=== PATIENT | female | born 1940 | race Asian ===

== ENCOUNTER 2019-02-16 17:24 | Emergency (ER) | payer OTHER ==
[2019-02-16 17:33] VITALS: TEMP 98; BMI 23.4
--- NOTE | 2019-02-16 18:00 | PDOC ---
History of Present Illness - General Chief Complaint: Injury Stated Complaint: PAIN Time Seen by Provider: 02/16/19 17:58 Past History - Past Medical History Allergies/Adverse Reactions: Allergies Allergy/AdvReac Type Severity Reaction Status Date / Time Sulfa (Sulfonamide Allergy Unknown Verified 02/16/19 17:33 Antibiotics) COPD: No Diabetes: Yes HTN: Yes - Surgical History Cardiac Surgery: Yes - Psycho Social/Smoking Cessation Hx Smoking History: Never smoked *Physical Exam - Vital Signs Last Vital Signs Temp Pulse Resp BP Pulse Ox 98 F 89 18 109/51 L 98 02/16/19 17:28 02/16/19 17:28 02/16/19 17:28 02/16/19 17:28 02/16/19 17:28 Discharge - Follow up/Referral Referrals: Darion Calabrese MD [Primary Care Provider] - - Patient Discharge Instructions - Post Discharge Activity
[2019-02-16] MEDS ORDERED: ACETAMINOPHEN 325 MG TABLET (FP) PO ONE (18:19)
[2019-02-16] MEDS ORDERED: LIDOCAINE 5% TOPICAL PATCH TP ONE (18:19)
[2019-02-16] MEDS ORDERED: LIDOCAINE 5% TOPICAL PATCH ONE (18:24)
[2019-02-16] MEDS ORDERED: ACETAMINOPHEN 325 MG TABLET (FP) ONE (18:24)
--- NOTE | 2019-02-16 18:28 | PDOC ---
*Physical Exam - Vital Signs Last Vital Signs Temp Pulse Resp BP Pulse Ox 98 F 89 18 109/51 L 98 02/16/19 17:28 02/16/19 17:28 02/16/19 17:28 02/16/19 17:28 02/16/19 17:28 Medical Decision Making - Medical Decision Making 02/16/19 18:28 78-year-old female presenting to the emergency department due to chest wall pain Patient status post a fall several days ago No head trauma or loss of consciousness Patient presents today due to persistent right-sided chest wall pain Pt seen by Midlevel Provider under my direct supervision Pt interviewed and examined On examination: Awake and alert No signs of external trauma to the head or neck. No midline C-spine tenderness to palpation Lungs are clear to auscultation Heart is regular rate and rhythm Chest wall tenderness noted No bruising noted Ancillary studies reviewed CT head, C-spine, chest pending We will reassess I agree with plan as outlined by Midlevel Provider 02/16/19 19:05 Discharge - Discharge Information Problems reviewed: Yes Clinical Impression/Diagnosis: Rib fractures Qualifiers: Encounter type: initial encounter Rib fracture type: multiple ribs Fracture type: closed Laterality: left Qualified Code(s): S22.42XA - Multiple fractures of ribs, left side, initial encounter for closed fracture Condition: Stable Disposition: HOME - Admission No - Additional Discharge Information Prescriptions: Lidocaine 5% Patch [Lidoderm -] 1 patch TP DAILY #30 patch - Follow up/Referral Referrals: Darion Calabrese MD [Primary Care Provider] - 2 Days - Patient Discharge Instructions Patient Printed Discharge Instructions: How to Use an Incentive Spirometer, DI for Rib Fracture Additional Instructions: Thank you for choosing [facility]. It was a pleasure taking care of you. You may take Tylenol 650 mg every 6 hours by mouth as needed for mild to moderate pain. Do not take more than 4000 mg of Tylenol in 1 day. Use the lidocaine patch as directed Please use the incentive spirometer as advised. Take 10 to 15 breaths with your spirometer every 1 to 2 hours. Follow-up with your doctor in 2 days Return to the Emergency Department if your symptoms worsen or persist, you have fever, shortness of breath, chest pain or other concerning symptoms. - Post Discharge Activity
--- NOTE | 2019-02-16 19:30 | PDOC ---
History of Present Illness - General Chief Complaint: Injury Stated Complaint: PAIN Time Seen by Provider: 02/16/19 17:58 History Source: Patient, Family Exam Limitations: No Limitations Past History - Past Medical History Allergies/Adverse Reactions: Allergies Allergy/AdvReac Type Severity Reaction Status Date / Time Sulfa (Sulfonamide Allergy Unknown Verified 02/16/19 17:33 Antibiotics) Home Medications: Ambulatory Orders Lidocaine 5% Patch [Lidoderm -] 1 patch TP DAILY #30 patch 02/16/19 COPD: No Diabetes: Yes HTN: Yes - Surgical History Cardiac Surgery: Yes - Psycho Social/Smoking Cessation Hx Smoking History: Never smoked Information on smoking cessation initiated: No *Physical Exam - Vital Signs Last Vital Signs Temp Pulse Resp BP Pulse Ox 98 F 89 18 109/51 L 98 02/16/19 17:28 02/16/19 17:28 02/16/19 17:28 02/16/19 17:28 02/16/19 17:28 - Physical Exam General Appearance: No: Apparent Distress HEENT: positive: DARIA, Other (no head trauma) Neck: positive: Tender midline (mild), Other (no pain with movement of neck) Respiratory/Chest: positive: Chest Tender (along L lateral chest wall and mildly along R lateral chest wall, no ecchymosis, no step-off palpable), Normal Breath Sounds. negative: Respiratory Distress Cardiovascular: positive: Regular Rhythm, Regular Rate, S1, S2. negative: Murmur Gastrointestinal/Abdominal: positive: Normal Bowel Sounds, Soft. negative: Tender, Distended, Guarding, Rebound Musculoskeletal: positive: Vertebral Tenderness (mild along thoracic spine, no TTP along lumbar spine). negative: Muscle Spasm Integumentary: positive: Normal Color Neurologic: positive: oral surgery assistant II-XII NML intact, Fully Oriented, Alert, Normal Mood/ Affect, Motor Strength 5/5 ED Treatment Course - RADIOLOGY Radiology Studies Ordered: Category Date Time Status CERVICAL SPINE CT W/O CONTR [CT] Stat CT Scan 02/16/19 18:[address] WITHOUT CONTRAST [CT] Stat CT Scan 02/16/19 18:[address] WITHOUT CONTRAST [CT] Stat CT Scan 02/16/19 18:19 Completed - Medications Given in the ED: ED Medications Discontinued Medications Generic Name Dose Route Start Last Admin Trade Name Freq PRN Reason Stop Dose Admin Acetaminophen 975 mg 02/16/19 18:19 02/16/19 18:29 Tylenol - PO 02/16/19 18:20 975 mg ONCE ONE Administration Lidocaine 1 patch 02/16/19 18:19 02/16/19 18:29 Lidoderm Patch - TP 02/16/19 18:20 1 patch ONCE ONE Administration Medical Decision Making - Medical Decision Making 78 y/o F hx of HTN, DM, CAD s/p CABG and PCI presents s/p fall 5 days ago. Patient's daughter just found out about the fall today. Per patient, she was getting out of bed and it was dark so she could not see well and she fumbled and fell, landing on left side. Is c/o B/L rib pain (more along left side of ribs), posterior HIGGINS and upper back pain. Denies fever, sob, abd pain, n/v, numbness/tingling/weakness of extremities. Is on baby ASA S/P mechanical fall Plan: r/o ICB, rib fracture, spine fracture CT head, CT cervical spine, CT chest, Tylenol, lido patch 02/16/19 19:27 CT head/cspine negative CT chest shows L rib fractures (4th, 5th, 6th), mildly displaced D/W Dr. Kelly - no concern for flail chest and no current need for admission Patient reports 0/10 pain after getting Tylenol and lido patch Patient given incentive spirometer and explained how to use it stable for dc 02/16/19 20:02 Discharge - Discharge Information Problems reviewed: Yes Clinical Impression/Diagnosis: Rib fractures Qualifiers: Encounter type: initial encounter Rib fracture type: multiple ribs Fracture type: closed Laterality: left Qualified Code(s): S22.42XA - Multiple fractures of ribs, left side, initial encounter for closed fracture Condition: Stable Disposition: HOME - Admission No - Additional Discharge Information Prescriptions: Lidocaine 5% Patch [Lidoderm -] 1 patch TP DAILY #30 patch Prescription Drug Monitoring Program (I-STOP) results: I-STOP not reviewed - Follow up/Referral Referrals: Darion Calabrese MD [Primary Care Provider] - 2 Days - Patient Discharge Instructions Patient Printed Discharge Instructions: DI for Rib Fracture, How to Use an Incentive Spirometer Additional Instructions: Thank you for choosing [facility]. It was a pleasure taking care of you. You may take Tylenol 650 mg every 6 hours by mouth as needed for mild to moderate pain. Do not take more than 4000 mg of Tylenol in 1 day. Use the lidocaine patch as directed Please use the incentive spirometer as advised. Take 10 to 15 breaths with your spirometer every 1 to 2 hours. Follow-up with your doctor in 2 days Return to the Emergency Department if your symptoms worsen or persist, you have fever, shortness of breath, chest pain or other concerning symptoms. - Post Discharge Activity
[2019-02-16 20:20] VITALS: BP 112/62; PULSE 86
== END 2019-02-16 20:22 | disposition home or self-care (01) ==
LOC: JER 17:24
DX: S22.42XA Multiple fractures of ribs, left side, initial encounter for closed fracture (principal); W01.0XXA Fall on same level from slipping, tripping and stumbling without subsequent striking against object, initial encounter; Y93.89 Activity, other specified; Y92.013 Bedroom of single-family (private) house as the place of occurrence of the external cause; Y99.8 Other external cause status; I10 Essential (primary) hypertension; E11.9 Type 2 diabetes mellitus without complications; Z88.2 Allergy status to sulfonamides
CPT/HCPCS: 70450-TC; 71250-TC; 72125-TC; 99282-25

== ENCOUNTER 2022-07-10 19:55 | Observation (INO) | payer OTHER ==
[2022-07-10] MEDS ORDERED: FOLIC ACID INJECTION - 1 MG, THIAMINE HCL 100 MG, MULTIVIT INJECTION ADULT 10 ML in SOD... IVPB ONE (21:12)
[2022-07-10 21:57] LABS: BASO % 0.3 % (0-2.0); EOS % 0.9 % (0-4.5); HEMATOCRIT 41.5 % (32.4-45.2); HEMOGLOBIN 14.2 GM/dL (10.7-15.3); LYMPH % 41.2 % (8-40); MCH 29.9 pg (25.7-33.7); MCHC 34.3 g/dl (32.0-36.0); MEAN CELL VOLUME 87.3 fl (80-96); MEAN PLT VOLUME 9.1 fl (7.5-11.1); MONO % 8.5 % (3.8-10.2); NEUT % 49.1 % (42.8-82.8); PLATELET COUNT 291 10^3/uL (134-434); RBC 4.76 M/mm3 (3.60-5.2); RDW 13.8 % (11.6-15.6); WHITE BLOOD COUNT 10.1 K/mm3 (4.0-10.0)
[2022-07-10 22:07] LABS: INR 1.11 (0.83-1.09); PROTHROMBIN TIME (PATIENT) 12.9 SEC (9.7-13.0)
[2022-07-10 22:09] LABS: ACTIVATED PTT 25.7 SECONDS (25.2-36.5)
[2022-07-10 22:19] LABS: CALCIUM 10.3 mg/dL (8.5-10.1)
[2022-07-10 22:20] LABS: ALBUMIN 3.7 g/dl (3.4-5.0); BLOOD UREA NITROGEN 54.5 mg/dL (7-18)
[2022-07-10 22:23] LABS: CREATININE 2.3 mg/dL (0.55-1.3)
[2022-07-10 22:25] LABS: BILIRUBIN,TOTAL 0.4 mg/dL (0.2-1); TOT PROT 9.1 g/dl (6.4-8.2)
[2022-07-10 22:28] LABS: N-TERMINAL BNP 485.4 pg/ml (5-450)
[2022-07-10] MEDS ORDERED: ASPIRIN 81 MG CHEWABLE TABLETS PO ONE (22:28)
[2022-07-10] MEDS ORDERED: ASPIRIN 81 MG CHEWABLE TABLETS ONE (22:32)
[2022-07-11] MEDS ORDERED: ACETAMINOPHEN 325 MG TABLET (FP) PO ONE (01:00)
[2022-07-11] MEDS: SODIUM CHLORIDE 1,000 ML IV SCH ×2 (01:02→21:42)
[2022-07-11] MEDS ORDERED: INSULIN (NOVOLOG) ASPART 100 UNITS/ML 10ML VIAL ONE ×2 (06:03→21:33)
[2022-07-11] MEDS: HEPARIN NA (PORCINE) 5,000 UNITS/ML 1ML VIAL SQ SCH ×3 (06:42→21:40)
[2022-07-11] MEDS ORDERED: INSULIN SLIDING SCALE (NOVOLOG) 1 VIAL SQ SCH (07:00)
[2022-07-11 09:19] LABS: BASO % 0.5 % (0-2.0); EOS % 1.8 % (0-4.5); HEMATOCRIT 37.3 % (32.4-45.2); HEMOGLOBIN 12.6 GM/dL (10.7-15.3); LYMPH % 45.6 % (8-40); MCH 29.7 pg (25.7-33.7); MCHC 33.6 g/dl (32.0-36.0); MEAN CELL VOLUME 88.3 fl (80-96); MEAN PLT VOLUME 9.7 fl (7.5-11.1); MONO % 7.2 % (3.8-10.2); NEUT % 44.9 % (42.8-82.8); PLATELET COUNT 261 10^3/uL (134-434); RBC 4.23 M/mm3 (3.60-5.2); RDW 13.5 % (11.6-15.6); WHITE BLOOD COUNT 7.3 K/mm3 (4.0-10.0)
[2022-07-11] MEDS: ISOSORBIDE MONONITRATE 30 MG TAB.SR.24H (FP) PO SCH (09:29)
[2022-07-11] MEDS: PANTOPRAZOLE 40 MG TABLET PO SCH (09:29)
[2022-07-11] MEDS: amLODIPine BESYLATE 2.5 MG TABLET (FP) PO SCH (09:29)
[2022-07-11] MEDS: PRIMIDONE 50 MG TABLET PO SCH (09:36)
[2022-07-11 10:00] VITALS: RESP 18
[2022-07-11 10:05] LABS: BLOOD UREA NITROGEN 42.3 mg/dL (7-18)
[2022-07-11 10:06] LABS: MAGNESIUM 1.7 mg/dL (1.8-2.4)
[2022-07-11 10:08] LABS: CREATININE 1.3 mg/dL (0.55-1.3); PHOSPHOROUS 2.3 mg/dL (2.5-4.9)
[2022-07-11 10:09] LABS: BILIRUBIN,TOTAL 0.6 mg/dL (0.2-1); TOT PROT 7.4 g/dl (6.4-8.2)
[2022-07-11 10:12] LABS: CALCIUM 8.7 mg/dL (8.5-10.1)
[2022-07-11 10:20] LABS: PH,URINE 5.5 (5.0-8.0); URINE APPEARANCE CLEAR; URINE BILIRUBIN NEGATIVE (NEGATIVE); URINE COLOR YELLOW; URINE GLUCOSE (UA) NEGATIVE (NEGATIVE); URINE KETONE NEGATIVE (NEGATIVE); URINE NITRITE NEGATIVE (NEGATIVE); URINE PROTEIN TRACE (NEGATIVE); URINE UROBILINOGEN 0.2 mg/dL (0.2-1.0)
[2022-07-11 11:17] LABS: URINE LEUK ESTERASE FEW (NEGATIVE)
[2022-07-11] MEDS: INSULIN SLIDING SCALE (NOVOLOG) 1 VIAL SQ SCH ×3 (11:18→21:41)
[2022-07-11] MEDS ORDERED: MAGNESIUM OXIDE 400 MG TABLET (FP) PO ONE (12:00)
[2022-07-11 15:40] LABS: ALBUMIN 2.8 g/dl (3.4-5.0); BLOOD UREA NITROGEN 29.7 mg/dL (7-18); CALCIUM 8.1 mg/dL (8.5-10.1)
[2022-07-11 15:43] LABS: CREATININE 1.2 mg/dL (0.55-1.3)
[2022-07-11 15:45] LABS: BILIRUBIN,TOTAL 0.4 mg/dL (0.2-1); TOT PROT 6.9 g/dl (6.4-8.2)
[2022-07-11] MEDS ORDERED: PREGABALIN 75 MG CAPSULE PO SCH (22:00)
[2022-07-11] MEDS ORDERED: ATORVASTATIN CA 10 MG TABLET (FP) PO SCH (22:00)
[2022-07-12] MEDS: SODIUM CHLORIDE 1,000 ML IV SCH (05:55)
[2022-07-12] MEDS: INSULIN SLIDING SCALE (NOVOLOG) 1 VIAL SQ SCH ×3 (06:12→17:19)
[2022-07-12] MEDS: HEPARIN NA (PORCINE) 5,000 UNITS/ML 1ML VIAL SQ SCH ×2 (06:41→13:11)
[2022-07-12 08:45] LABS: MAGNESIUM 1.3 mg/dL (1.8-2.4)
[2022-07-12 08:46] LABS: CALCIUM 8.2 mg/dL (8.5-10.1)
[2022-07-12 08:47] LABS: ALBUMIN 2.6 g/dl (3.4-5.0); BLOOD UREA NITROGEN 27.2 mg/dL (7-18)
[2022-07-12 08:49] LABS: PHOSPHOROUS 1.5 mg/dL (2.5-4.9)
[2022-07-12 08:50] LABS: TOT PROT 6.4 g/dl (6.4-8.2)
[2022-07-12 08:51] LABS: BILIRUBIN,TOTAL 0.2 mg/dL (0.2-1)
[2022-07-12] MEDS ORDERED: NAPH,MB-DB/K PH,MBDB POWDER PACKET PO ONE ×2 (09:04→10:32)
[2022-07-12] MEDS ORDERED: MAGNESIUM SULF 50% (8.12 MEQ/2 ML-1 GM VIAL) IVPB ONE ×2 (10:00→10:32)
[2022-07-12] MEDS: amLODIPine BESYLATE 2.5 MG TABLET (FP) PO SCH (10:06)
[2022-07-12] MEDS: ISOSORBIDE MONONITRATE 30 MG TAB.SR.24H (FP) PO SCH (10:06)
[2022-07-12] MEDS: PANTOPRAZOLE 40 MG TABLET PO SCH (10:10)
[2022-07-12] MEDS: PRIMIDONE 50 MG TABLET PO SCH (10:11)
[2022-07-12 10:21] VITALS: TEMP 98.6
[2022-07-12] MEDS ORDERED: LIDOCAINE 5% TOPICAL PATCH TP SCH (11:30)
[2022-07-12] MEDS ORDERED: D5-1/2NS+40 MEQ KCL - 40 MEQ/1,000 ML INFUS.BAG IV SCH (12:00)
[2022-07-12] MEDS ORDERED: SODIUM CHLORIDE 0.45%/POT 20 MEQ/1,000 ML INFUS.BAG IV SCH (12:45)
[2022-07-12 18:57] VITALS: BP 141/58; PULSE 56
[2022-07-12] MEDS ORDERED: LIDOCAINE PATCH REMOVAL MC SCH (22:00)
[2022-07-13 16:07] LABS: BETA-2-MICROGLOBULIN 3.2 mg/L (0.6-2.4)
[2022-07-13 18:07] LABS: FREE KAPPA,SERUM 78.7 mg/L (3.3-19.4)
== END 2022-07-12 19:06 | disposition home or self-care (01) ==
LOC: JER 19:55 → JERBED 22:24 → J4W 07-11 01:52
PROVIDERS: ADMIT Internal Medicine; ATTEND Internal Medicine
PROC: 3E033GC Introduction of Other Therapeutic Substance into Peripheral Vein, Percutaneous Approach (ICD-10-PCS; principal; 2022-07-10)
PROC: 3E023GC Introduction of Other Therapeutic Substance into Muscle, Percutaneous Approach (ICD-10-PCS; 2022-07-10)
PROC: 3E013VG Introduction of Insulin into Subcutaneous Tissue, Percutaneous Approach (ICD-10-PCS; 2022-07-10)
PROC: 3E033GC Introduction of Other Therapeutic Substance into Peripheral Vein, Percutaneous Approach (ICD-10-PCS; 2022-07-10)
PROC: 3E0337Z Introduction of Electrolytic and Water Balance Substance into Peripheral Vein, Percutaneous Approach (ICD-10-PCS; 2022-07-10)
DX: I25.10 Atherosclerotic heart disease of native coronary artery without angina pectoris (principal); I11.9 Hypertensive heart disease without heart failure; E78.5 Hyperlipidemia, unspecified; E11.9 Type 2 diabetes mellitus without complications; R53.1 Weakness; E86.0 Dehydration; R19.7 Diarrhea, unspecified; Z95.5 Presence of coronary angioplasty implant and graft; Z95.1 Presence of aortocoronary bypass graft; Z88.2 Allergy status to sulfonamides
CPT/HCPCS: 0241U-QW; 36415; 71045-TC-FY; 71250-TC; 80053; 81003; 82150; 82232; 82436; 82570; 82784; 82962; 83036; 83690; 83735; 83880; 83883; 83930; 83935; 84100; 84133; 84155; 84156; 84157; 84165; 84300; 84484; 85025; 85610; 85730; 87086; 87186; 87899; 93005; 93010; 96365; 96367; 96372; 96375; 97116-GP; 97161-GP; 99285-25; G0378; J1644; J3480

== ENCOUNTER 2023-03-23 19:19 | Inpatient (IN) | payer OTHER ==
[2023-03-23] MEDS ORDERED: AZITHROMYCIN IVPB 500 MG in DEXTROSE 5%-WATER - 250 ML IVPB ONE (20:22)
[2023-03-23] MEDS ORDERED: ACETAMINOPHEN 1000 MG/100 ML BAG IVPB ONE (20:22)
[2023-03-23] MEDS ORDERED: ALBUTEROL SO4 2.5/IPRATROPIUM 0.5 INH SOL 3 ML VIAL.NEB. NEB ONE ×2 (20:22→20:37)
[2023-03-23] MEDS ORDERED: PIPERACILLIN/TAZOB 3.375 GM 3.375 GM in DEXTROSE 5%-WATER - 50 ML IVPB ONE (20:36)
[2023-03-23] MEDS ORDERED: VANCOMYCIN 1,000 MG in DEXTROSE 5%-WATER - 250 ML IVPB ONE (20:36)
[2023-03-23] MEDS ORDERED: PIPERACILLIN/TAZOB 3.375 GM 3.375 GM/50 ML BAG IVPB ONE (20:43)
[2023-03-23] MEDS ORDERED: ACETAMINOPHEN INJECTION 100 ML IVPB ONE (20:43)
[2023-03-23 20:56] LABS: BASO % 0.4 % (0-2.0); EOS % 0.9 % (0-4.5); HEMATOCRIT 37.7 % (32.4-45.2); HEMOGLOBIN 12.1 GM/dL (10.7-15.3); LYMPH % 17.8 % (8-40); MCH 28.5 pg (25.7-33.7); MCHC 32.1 g/dl (32.0-36.0); MEAN CELL VOLUME 88.7 fl (80-96); MEAN PLT VOLUME 8.7 fl (7.5-11.1); MONO % 5.6 % (3.8-10.2); NEUT % 75.3 % (42.8-82.8); PLATELET COUNT 199 10^3/uL (134-434); RBC 4.25 M/mm3 (3.60-5.2); RDW 13.4 % (11.6-15.6); WHITE BLOOD COUNT 13.3 K/mm3 (4.0-10.0)
[2023-03-23 21:03] LABS: INR 1.05 (0.83-1.09); PROTHROMBIN TIME (PATIENT) 12.2 SEC (9.7-13.0)
[2023-03-23 21:13] LABS: POTASSIUM 4.6 mmol/L (3.5-5.1)
[2023-03-23 21:16] LABS: CALCIUM 9.2 mg/dL (8.5-10.1)
[2023-03-23] MEDS ORDERED: methylPREDNISolone NA SUCC 125 MG/2 ML VIAL IVPUSH ONE (21:16)
[2023-03-23 21:17] LABS: ALBUMIN 3.1 g/dl (3.4-5.0); BLOOD UREA NITROGEN 25.1 mg/dL (7-18); MAGNESIUM 1.3 mg/dL (1.8-2.4)
[2023-03-23] MEDS ORDERED: VANCOMYCIN 1 GRAM (PRE-DOCKED) 1,000 MG/250 ML BAG IVPB ONE (21:19)
[2023-03-23 21:20] LABS: CREATININE 1.4 mg/dL (0.55-1.3)
[2023-03-23 21:21] LABS: TOT PROT 8.2 g/dl (6.4-8.2)
[2023-03-23] MEDS ORDERED: MAGNESIUM SULFATE IN WATER 2 GM/50 ML IVPB IVPB ONE ×2 (21:21→22:01)
[2023-03-23 21:22] LABS: BILIRUBIN,TOTAL 0.1 mg/dL (0.2-1)
[2023-03-23 21:52] LABS: LACTIC ACID 2.2 mmol/L (0.4-2.0)
[2023-03-23] MEDS ORDERED: SODIUM CHLORIDE 0.9% 500 ML INFUS.BAG IV ONE (21:53)
[2023-03-23] MEDS ORDERED: methylPREDNISolone NA SUCC 125 MG/2 ML VIAL ONE (22:01)
[2023-03-24 00:15] LABS: N-TERMINAL BNP 4046.8 pg/ml (5-450)
[2023-03-24] MEDS ORDERED: methylPREDNISolone NA SUCC 125 MG/2 ML VIAL IVPB SCH (03:45)
[2023-03-24 04:37] LABS: EPI CELLS 4 /uL (0-25.1); HYALINE CASTS 0 /uL (0-3.1); PH,URINE 5.5 (5.0-8.0); URINE APPEARANCE CLEAR; URINE BACTERIA 8 /uL (0-1359); URINE BILIRUBIN NEGATIVE (NEGATIVE); URINE COLOR YELLOW; URINE GLUCOSE (UA) 1+ (NEGATIVE); URINE KETONE NEGATIVE (NEGATIVE); URINE LEUK ESTERASE NEGATIVE (NEGATIVE); URINE NITRITE NEGATIVE (NEGATIVE); URINE PROTEIN 3+ (NEGATIVE); URINE RBC 20 /uL (0-23.9); URINE UROBILINOGEN 0.2 mg/dL (0.2-1.0); URINE WBC 12 /uL (0-25.8)
[2023-03-24] MEDS ORDERED: methylPREDNISolone NA SUCC 40 MG/1 ML VIAL ONE ×2 (05:16→17:28)
[2023-03-24] MEDS ORDERED: HEPARIN NA (PORCINE) 5,000 UNITS/ML 1ML VIAL ONE ×3 (05:47→22:26)
[2023-03-24] MEDS: HEPARIN NA (PORCINE) 5,000 UNITS/ML 1ML VIAL SQ SCH ×3 (05:53→22:53)
[2023-03-24 08:00] LABS: BASO % 0.1 % (0-2.0); HEMATOCRIT 36.1 % (32.4-45.2); HEMOGLOBIN 11.9 GM/dL (10.7-15.3); LYMPH % 12.8 % (8-40); MCH 29.2 pg (25.7-33.7); MEAN CELL VOLUME 88.3 fl (80-96); MEAN PLT VOLUME 9.2 fl (7.5-11.1); MONO % 0.7 % (3.8-10.2); NEUT % 86.4 % (42.8-82.8); PLATELET COUNT 183 10^3/uL (134-434); RBC 4.08 M/mm3 (3.60-5.2); RDW 13.5 % (11.6-15.6); WHITE BLOOD COUNT 10.8 K/mm3 (4.0-10.0)
[2023-03-24 08:18] LABS: POTASSIUM 4.6 mmol/L (3.5-5.1)
[2023-03-24] MEDS ORDERED: INSULIN (LEVEMIR) 100 UNITS/ML UNITS SQ ONE (08:31)
[2023-03-24] MEDS ORDERED: ALBUTEROL SO4 2.5/IPRATROPIUM 0.5 INH SOL 3 ML VIAL.NEB. NEB ONE ×3 (08:31→20:11)
[2023-03-24] MEDS: ALBUTEROL SO4 2.5/IPRATROPIUM 0.5 INH SOL 3 ML VIAL.NEB. NEB SCH ×3 (08:41→20:25)
[2023-03-24] MEDS: INSULIN (LEVEMIR) 100 UNITS/ML UNITS SQ SCH ×2 (08:41→09:53)
[2023-03-24 08:45] LABS: LACTIC ACID 4.8 mmol/L (0.4-2.0)
[2023-03-24 08:55] LABS: BLOOD UREA NITROGEN 27.6 mg/dL (7-18); CALCIUM 8.8 mg/dL (8.5-10.1); MAGNESIUM 2.1 mg/dL (1.8-2.4)
[2023-03-24 08:57] LABS: CREATININE 1.6 mg/dL (0.55-1.3)
[2023-03-24 08:58] LABS: BILIRUBIN,TOTAL 0.3 mg/dL (0.2-1); PHOSPHOROUS 4.1 mg/dL (2.5-4.9); TOT PROT 8.1 g/dl (6.4-8.2)
[2023-03-24] MEDS ORDERED: OSELTAMIVIR PHOSPHATE 45 MG CAPSULE PO SCH (10:00)
[2023-03-24] MEDS ORDERED: AZITHROMYCIN IVPB 250 MG in DEXTROSE 5%-WATER - 250 ML IVPB SCH (10:00)
[2023-03-24] MEDS ORDERED: ENOXAPARIN NA (PORCINE) 40 MG/0.4 ML DISP.SYRIN SQ SCH (10:00)
[2023-03-24] MEDS: GABAPENTIN 300 MG CAPSULE PO SCH (11:00)
[2023-03-24] MEDS: ISOSORBIDE MONONITRATE 30 MG TAB.SR.24H (FP) PO SCH (11:00)
[2023-03-24] MEDS: OSELTAMIVIR PHOSPHATE 30 MG CAPSULE PO SCH (11:00)
[2023-03-24] MEDS: amLODIPine BESYLATE 5 MG TABLET (FP) PO SCH (11:00)
[2023-03-24] MEDS: PRIMIDONE 50 MG TABLET PO SCH (11:00)
[2023-03-24] MEDS: methylPREDNISolone NA SUCC 125 MG/2 ML VIAL IVPB SCH ×2 (11:00→17:39)
[2023-03-24] MEDS ORDERED: CEFTRIAXONE 1 GM/50 ML BAG ONE (12:54)
[2023-03-24] MEDS: CEFTRIAXONE 1 GM in DEXTROSE 5%-WATER - 50 ML IVPB SCH (12:59)
[2023-03-24] MEDS ORDERED: SODIUM CHLORIDE 0.45% 1,000 ML IV SCH (15:00)
[2023-03-24 16:07] LABS: ARTERIAL BLD GAS O2 SATURATION 96.3 % (95-98); ARTERIAL BLOOD GAS BASE EXCESS -4.9 mmol/L (-2-2); ARTERIAL BLOOD GAS PO2 89.2 mmHg (80-100); ARTERIAL BLOOD GAS pH 7.333 (7.350-7.450)
[2023-03-24 16:13] LABS: ALLENS TEST POSITIVE
[2023-03-24 17:49] LABS: LACTIC ACID 5.2 mmol/L (0.4-2.0)
[2023-03-24 18:01] LABS: CHLORIDE 97 mmol/L (98-107); POTASSIUM 4.9 mmol/L (3.5-5.1); SODIUM 131 mmol/L (136-145)
[2023-03-24 18:04] LABS: ANION GAP 12 mmol/L (4-13); BLOOD UREA NITROGEN 31.4 mg/dL (7-18); CO2 23 mmol/L (21-32)
[2023-03-24 18:06] LABS: CREATININE 1.8 mg/dL (0.55-1.3); SGOT/AST 21 U/L (15-37); SGPT/ALT 26 U/L (13-61)
[2023-03-24 18:08] LABS: TOT PROT 8.1 g/dl (6.4-8.2)
[2023-03-24 18:09] LABS: ALK PHOS 147 U/L (45-117)
[2023-03-24 18:14] LABS: BILIRUBIN,TOTAL < 0.1 mg/dL (0.2-1)
[2023-03-24] MEDS ORDERED: FUROSEMIDE 40 MG/4 ML INJECTABLE VIAL IVPUSH ONE (18:21)
[2023-03-24] MEDS ORDERED: VANCOMYCIN 1 GRAM (PRE-DOCKED) 1,000 MG/250 ML BAG IVPB ONE ×2 (18:30→18:51)
[2023-03-24 18:50] LABS: GLUCOSE,RANDOM 485 mg/dL (74-106)
[2023-03-24] MEDS ORDERED: FUROSEMIDE 40 MG/4 ML INJECTABLE VIAL ONE (18:51)
[2023-03-24] MEDS ORDERED: ASPIRIN 81 MG CHEWABLE TABLETS PO ONE (19:08)
[2023-03-24] MEDS ORDERED: INSULIN (NOVOLOG) ASPART 100 UNITS/ML 10ML VIAL SQ ONE (19:51)
[2023-03-24] MEDS ORDERED: ASPIRIN 81 MG CHEWABLE TABLETS ONE (20:12)
[2023-03-24] MEDS ORDERED: DOXYCYCLINE HYCLATE 100 MG VIAL ONE ×2 (20:28→22:26)
[2023-03-24] MEDS: DOXYCYCLINE INJECTION 100 MG in DEXTROSE 5%-WATER 100 ML IVPB SCH ×2 (20:37→22:53)
[2023-03-24] MEDS ORDERED: INSULIN ASPART SLIDING SCALE (NOVOLOG) 1 VIAL SQ SCH (22:00)
[2023-03-24] MEDS ORDERED: ATORVASTATIN CA 10 MG TABLET (FP) ONE (22:26)
[2023-03-24] MEDS ORDERED: DONEPEZIL HCL 5 MG TABLET (FP) ONE (22:26)
[2023-03-24] MEDS: ATORVASTATIN CA 10 MG TABLET (FP) PO SCH (22:53)
[2023-03-24] MEDS: DONEPEZIL HCL 5 MG TABLET (FP) PO SCH (22:53)
[2023-03-25] MEDS ORDERED: methylPREDNISolone NA SUCC 40 MG/1 ML VIAL ONE ×2 (03:55→08:31)
[2023-03-25] MEDS: methylPREDNISolone NA SUCC 125 MG/2 ML VIAL IVPB SCH ×3 (04:01→17:52)
[2023-03-25] MEDS ORDERED: HEPARIN NA (PORCINE) 5,000 UNITS/ML 1ML VIAL ONE (05:57)
[2023-03-25] MEDS: HEPARIN NA (PORCINE) 5,000 UNITS/ML 1ML VIAL SQ SCH ×3 (06:05→21:46)
[2023-03-25] MEDS ORDERED: ALBUTEROL SO4 2.5/IPRATROPIUM 0.5 INH SOL 3 ML VIAL.NEB. NEB ONE (08:12)
[2023-03-25] MEDS ORDERED: DOXYCYCLINE HYCLATE 100 MG VIAL ONE (08:32)
[2023-03-25] MEDS ORDERED: CEFTRIAXONE 1 GM/50 ML BAG ONE (08:52)
[2023-03-25] MEDS ORDERED: INSULIN (NOVOLOG) ASPART 100 UNITS/ML 10ML VIAL ONE (09:13)
[2023-03-25] MEDS: ISOSORBIDE MONONITRATE 30 MG TAB.SR.24H (FP) PO SCH (09:19)
[2023-03-25] MEDS: ALBUTEROL SO4 2.5/IPRATROPIUM 0.5 INH SOL 3 ML VIAL.NEB. NEB SCH ×3 (09:19→20:05)
[2023-03-25] MEDS: INSULIN (LEVEMIR) 100 UNITS/ML UNITS SQ SCH (09:19)
[2023-03-25] MEDS: INSULIN ASPART SLIDING SCALE (NOVOLOG) 1 VIAL SQ SCH ×4 (09:19→21:48)
[2023-03-25] MEDS: OSELTAMIVIR PHOSPHATE 30 MG CAPSULE PO SCH (09:20)
[2023-03-25] MEDS: GABAPENTIN 300 MG CAPSULE PO SCH (09:20)
[2023-03-25] MEDS: CEFTRIAXONE 1 GM in DEXTROSE 5%-WATER - 50 ML IVPB SCH (09:20)
[2023-03-25] MEDS: amLODIPine BESYLATE 5 MG TABLET (FP) PO SCH (09:20)
[2023-03-25] MEDS: DOXYCYCLINE INJECTION 100 MG in DEXTROSE 5%-WATER 100 ML IVPB SCH ×2 (09:20→21:49)
[2023-03-25] MEDS: PRIMIDONE 50 MG TABLET PO SCH (09:20)
[2023-03-25 09:58] LABS: HEMATOCRIT 36.6 % (32.4-45.2); HEMOGLOBIN 12.1 GM/dL (10.7-15.3); MCH 28.9 pg (25.7-33.7); MCHC 33.1 g/dl (32.0-36.0); MEAN CELL VOLUME 87.4 fl (80-96); MEAN PLT VOLUME 9.4 fl (7.5-11.1); PLATELET COUNT 223 10^3/uL (134-434); RBC 4.18 M/mm3 (3.60-5.2); RDW 13.8 % (11.6-15.6); WHITE BLOOD COUNT 19.9 K/mm3 (4.0-10.0)
[2023-03-25 10:47] LABS: POTASSIUM 4.4 mmol/L (3.5-5.1)
[2023-03-25 10:52] LABS: LACTIC ACID 2.9 mmol/L (0.4-2.0)
[2023-03-25 10:54] LABS: CALCIUM 8.7 mg/dL (8.5-10.1)
[2023-03-25 10:56] LABS: MAGNESIUM 1.8 mg/dL (1.8-2.4)
[2023-03-25 10:59] LABS: BILIRUBIN,TOTAL 0.2 mg/dL (0.2-1); CREATININE 1.5 mg/dL (0.55-1.3); PHOSPHOROUS 3.5 mg/dL (2.5-4.9); TOT PROT 8.1 g/dl (6.4-8.2)
[2023-03-25 16:48] VITALS: BMI 25.2
[2023-03-25] MEDS: ATORVASTATIN CA 10 MG TABLET (FP) PO SCH (21:45)
[2023-03-25] MEDS: DONEPEZIL HCL 5 MG TABLET (FP) PO SCH (21:45)
[2023-03-26] MEDS: methylPREDNISolone NA SUCC 125 MG/2 ML VIAL IVPB SCH ×3 (02:00→17:07)
[2023-03-26] MEDS: HEPARIN NA (PORCINE) 5,000 UNITS/ML 1ML VIAL SQ SCH ×3 (06:31→22:33)
[2023-03-26] MEDS: INSULIN ASPART SLIDING SCALE (NOVOLOG) 1 VIAL SQ SCH ×4 (06:32→22:52)
[2023-03-26] MEDS: ALBUTEROL SO4 2.5/IPRATROPIUM 0.5 INH SOL 3 ML VIAL.NEB. NEB SCH ×3 (07:33→20:21)
[2023-03-26 08:40] LABS: BASO % 0.3 % (0-2.0); HEMATOCRIT 32.8 % (32.4-45.2); LYMPH % 17.3 % (8-40); MCH 29.1 pg (25.7-33.7); MCHC 33.4 g/dl (32.0-36.0); MEAN CELL VOLUME 87.3 fl (80-96); MEAN PLT VOLUME 9.7 fl (7.5-11.1); NEUT % 77.4 % (42.8-82.8); PLATELET COUNT 195 10^3/uL (134-434); RBC 3.76 M/mm3 (3.60-5.2); RDW 13.8 % (11.6-15.6); WHITE BLOOD COUNT 17.1 K/mm3 (4.0-10.0)
[2023-03-26 08:48] LABS: POTASSIUM 5.1 mmol/L (3.5-5.1)
[2023-03-26 09:09] LABS: CALCIUM 8.8 mg/dL (8.5-10.1)
[2023-03-26 09:10] LABS: ALBUMIN 2.8 g/dl (3.4-5.0); BLOOD UREA NITROGEN 55.8 mg/dL (7-18)
[2023-03-26 09:13] LABS: CREATININE 1.4 mg/dL (0.55-1.3)
[2023-03-26 09:14] LABS: BILIRUBIN,TOTAL 0.1 mg/dL (0.2-1); TOT PROT 7.2 g/dl (6.4-8.2)
[2023-03-26] MEDS: ISOSORBIDE MONONITRATE 30 MG TAB.SR.24H (FP) PO SCH (10:12)
[2023-03-26] MEDS: INSULIN (LEVEMIR) 100 UNITS/ML UNITS SQ SCH (10:13)
[2023-03-26] MEDS: GABAPENTIN 300 MG CAPSULE PO SCH (10:14)
[2023-03-26] MEDS: PRIMIDONE 50 MG TABLET PO SCH (10:14)
[2023-03-26] MEDS: amLODIPine BESYLATE 10 MG TABLET (FP) PO SCH (10:14)
[2023-03-26] MEDS: OSELTAMIVIR PHOSPHATE 30 MG CAPSULE PO SCH (10:15)
[2023-03-26] MEDS: DOXYCYCLINE INJECTION 100 MG in DEXTROSE 5%-WATER 100 ML IVPB SCH ×2 (10:16→22:32)
[2023-03-26] MEDS: CEFTRIAXONE 1 GM in DEXTROSE 5%-WATER - 50 ML IVPB SCH (10:18)
[2023-03-26] MEDS: DONEPEZIL HCL 5 MG TABLET (FP) PO SCH (22:34)
[2023-03-26] MEDS: ATORVASTATIN CA 10 MG TABLET (FP) PO SCH (22:34)
[2023-03-27] MEDS: methylPREDNISolone NA SUCC 125 MG/2 ML VIAL IVPB SCH (04:22)
[2023-03-27] MEDS: HEPARIN NA (PORCINE) 5,000 UNITS/ML 1ML VIAL SQ SCH ×3 (06:32→22:00)
[2023-03-27] MEDS: INSULIN ASPART SLIDING SCALE (NOVOLOG) 1 VIAL SQ SCH ×4 (06:33→22:01)
[2023-03-27] MEDS: ALBUTEROL SO4 2.5/IPRATROPIUM 0.5 INH SOL 3 ML VIAL.NEB. NEB SCH ×3 (07:49→19:37)
[2023-03-27] MEDS: methylPREDNISolone NA SUCC 40 MG/1 ML VIAL IVPUSH SCH ×2 (09:45→18:32)
[2023-03-27] MEDS: PRIMIDONE 50 MG TABLET PO SCH (09:46)
[2023-03-27] MEDS: DOXYCYCLINE INJECTION 100 MG in DEXTROSE 5%-WATER 100 ML IVPB SCH ×2 (09:46→22:01)
[2023-03-27] MEDS: amLODIPine BESYLATE 10 MG TABLET (FP) PO SCH (09:46)
[2023-03-27] MEDS: ISOSORBIDE MONONITRATE 30 MG TAB.SR.24H (FP) PO SCH (09:46)
[2023-03-27] MEDS: GABAPENTIN 300 MG CAPSULE PO SCH (09:48)
[2023-03-27] MEDS: CEFTRIAXONE 1 GM in DEXTROSE 5%-WATER - 50 ML IVPB SCH (11:28)
[2023-03-27] MEDS: OSELTAMIVIR PHOSPHATE 30 MG CAPSULE PO SCH (11:28)
[2023-03-27] MEDS: INSULIN (LEVEMIR) 100 UNITS/ML UNITS SQ SCH ×2 (11:48→22:00)
[2023-03-27] MEDS: INSULIN (NOVOLOG) ASPART 100 UNITS/ML 10ML VIAL SQ SCH (17:17)
[2023-03-27] MEDS ORDERED: INSULIN (NOVOLOG) ASPART 100 UNITS/ML 10ML VIAL ONE (21:29)
[2023-03-27] MEDS: DONEPEZIL HCL 5 MG TABLET (FP) PO SCH (22:00)
[2023-03-27] MEDS: ATORVASTATIN CA 10 MG TABLET (FP) PO SCH (22:00)
[2023-03-28] MEDS: methylPREDNISolone NA SUCC 40 MG/1 ML VIAL IVPUSH SCH ×2 (02:28→09:52)
[2023-03-28] MEDS: INSULIN ASPART SLIDING SCALE (NOVOLOG) 1 VIAL SQ SCH ×4 (06:11→23:04)
[2023-03-28] MEDS: HEPARIN NA (PORCINE) 5,000 UNITS/ML 1ML VIAL SQ SCH ×3 (06:15→22:20)
[2023-03-28] MEDS: INSULIN (LEVEMIR) 100 UNITS/ML UNITS SQ SCH ×2 (06:15→22:21)
[2023-03-28] MEDS: INSULIN (NOVOLOG) ASPART 100 UNITS/ML 10ML VIAL SQ SCH ×3 (06:19→17:04)
[2023-03-28] MEDS: ALBUTEROL SO4 2.5/IPRATROPIUM 0.5 INH SOL 3 ML VIAL.NEB. NEB SCH ×3 (07:44→20:16)
[2023-03-28 08:35] LABS: HEMATOCRIT 34.6 % (32.4-45.2); HEMOGLOBIN 11.3 GM/dL (10.7-15.3); MCH 28.7 pg (25.7-33.7); MCHC 32.7 g/dl (32.0-36.0); MEAN CELL VOLUME 87.6 fl (80-96); MEAN PLT VOLUME 9.5 fl (7.5-11.1); PLATELET COUNT 216 10^3/uL (134-434); RBC 3.95 M/mm3 (3.60-5.2); RDW 13.7 % (11.6-15.6); WHITE BLOOD COUNT 13.3 K/mm3 (4.0-10.0)
[2023-03-28 09:00] LABS: POTASSIUM 5.6 mmol/L (3.5-5.1)
[2023-03-28 09:15] LABS: CALCIUM 9.5 mg/dL (8.5-10.1)
[2023-03-28 09:16] LABS: ALBUMIN 2.7 g/dl (3.4-5.0); BLOOD UREA NITROGEN 57.7 mg/dL (7-18)
[2023-03-28 09:18] LABS: CREATININE 1.3 mg/dL (0.55-1.3)
[2023-03-28 09:19] LABS: BILIRUBIN,TOTAL 0.2 mg/dL (0.2-1); TOT PROT 7.3 g/dl (6.4-8.2)
[2023-03-28 09:49] LABS: ANISOCYTOSIS 0; HELMET CELLS 0; HOWELL-JOLLY BODIES 0; MACROCYTOSIS 0; OVALOCYTE 0; ROULEAU 0; SICKELED CELLS 0; TARGET CELLS 0; TEAR DROP CELLS 0; TOXIC GRANULATION 0
[2023-03-28] MEDS: DOXYCYCLINE INJECTION 100 MG in DEXTROSE 5%-WATER 100 ML IVPB SCH (09:52)
[2023-03-28] MEDS: amLODIPine BESYLATE 10 MG TABLET (FP) PO SCH (09:53)
[2023-03-28] MEDS: OSELTAMIVIR PHOSPHATE 30 MG CAPSULE PO SCH (09:53)
[2023-03-28] MEDS: PRIMIDONE 50 MG TABLET PO SCH (09:53)
[2023-03-28] MEDS: ISOSORBIDE MONONITRATE 30 MG TAB.SR.24H (FP) PO SCH (09:53)
[2023-03-28] MEDS: GABAPENTIN 300 MG CAPSULE PO SCH (09:56)
[2023-03-28] MEDS ORDERED: INSULIN (NOVOLOG) ASPART 100 UNITS/ML 10ML VIAL ONE ×2 (11:12→17:03)
[2023-03-28] MEDS: CEFTRIAXONE 1 GM in DEXTROSE 5%-WATER - 50 ML IVPB SCH (11:18)
[2023-03-28] MEDS ORDERED: ACETAMINOPHEN 1000 MG/100 ML BAG IVPB ONE (11:26)
[2023-03-28] MEDS: SODIUM ZIRCONIUM CYCLOSILICATE (LOKELMA) 5 GM PACKET PO SCH (11:57)
[2023-03-28] MEDS: ATORVASTATIN CA 10 MG TABLET (FP) PO SCH (22:20)
[2023-03-28] MEDS: DONEPEZIL HCL 5 MG TABLET (FP) PO SCH (22:20)
[2023-03-29] MEDS: HEPARIN NA (PORCINE) 5,000 UNITS/ML 1ML VIAL SQ SCH ×3 (06:25→22:32)
[2023-03-29] MEDS: INSULIN (LEVEMIR) 100 UNITS/ML UNITS SQ SCH ×2 (06:25→22:33)
[2023-03-29] MEDS: INSULIN ASPART SLIDING SCALE (NOVOLOG) 1 VIAL SQ SCH ×4 (06:26→22:42)
[2023-03-29] MEDS: INSULIN (NOVOLOG) ASPART 100 UNITS/ML 10ML VIAL SQ SCH ×3 (06:26→16:52)
[2023-03-29 07:42] LABS: POTASSIUM 4.8 mmol/L (3.5-5.1)
[2023-03-29 07:50] LABS: ALBUMIN 2.5 g/dl (3.4-5.0); BLOOD UREA NITROGEN 59.9 mg/dL (7-18)
[2023-03-29 07:51] LABS: BILIRUBIN,TOTAL 0.2 mg/dL (0.2-1)
[2023-03-29 07:52] LABS: CALCIUM 9.3 mg/dL (8.5-10.1); CREATININE 1.5 mg/dL (0.55-1.3); MAGNESIUM 1.7 mg/dL (1.8-2.4); PHOSPHOROUS 4.6 mg/dL (2.5-4.9)
[2023-03-29] MEDS ORDERED: MAGNESIUM SULF 50% (8.12 MEQ/2 ML-1 GM VIAL) IVPB ONE (07:54)
[2023-03-29 07:58] LABS: HEMATOCRIT 36.6 % (32.4-45.2); HEMOGLOBIN 11.8 GM/dL (10.7-15.3); MCH 28.5 pg (25.7-33.7); MCHC 32.3 g/dl (32.0-36.0); MEAN CELL VOLUME 88.4 fl (80-96); MEAN PLT VOLUME 9.4 fl (7.5-11.1); PLATELET COUNT 247 10^3/uL (134-434); RBC 4.14 M/mm3 (3.60-5.2); RDW 13.8 % (11.6-15.6); WHITE BLOOD COUNT 20.9 K/mm3 (4.0-10.0)
[2023-03-29] MEDS: ALBUTEROL SO4 2.5/IPRATROPIUM 0.5 INH SOL 3 ML VIAL.NEB. NEB SCH ×3 (08:27→20:05)
[2023-03-29 09:12] LABS: ANISOCYTOSIS 1+; MACROCYTOSIS 0; OVALOCYTE 1+
[2023-03-29] MEDS: SODIUM ZIRCONIUM CYCLOSILICATE (LOKELMA) 5 GM PACKET PO SCH (10:37)
[2023-03-29] MEDS: ISOSORBIDE MONONITRATE 30 MG TAB.SR.24H (FP) PO SCH (10:38)
[2023-03-29] MEDS: amLODIPine BESYLATE 10 MG TABLET (FP) PO SCH (10:38)
[2023-03-29] MEDS: GABAPENTIN 300 MG CAPSULE PO SCH (10:38)
[2023-03-29] MEDS: PRIMIDONE 50 MG TABLET PO SCH (10:43)
[2023-03-29] MEDS ORDERED: MAGNESIUM 2GM/50ML STERILE WATER IVPB IVPB ONE (11:15)
[2023-03-29] MEDS: DONEPEZIL HCL 5 MG TABLET (FP) PO SCH (22:32)
[2023-03-29] MEDS: ATORVASTATIN CA 10 MG TABLET (FP) PO SCH (22:32)
[2023-03-29] MEDS ORDERED: ACETAMINOPHEN 1000 MG/100 ML BAG IVPB PRN (22:39)
[2023-03-30] MEDS: HEPARIN NA (PORCINE) 5,000 UNITS/ML 1ML VIAL SQ SCH ×3 (05:59→21:49)
[2023-03-30] MEDS: INSULIN (LEVEMIR) 100 UNITS/ML UNITS SQ SCH (07:14)
[2023-03-30] MEDS: INSULIN (NOVOLOG) ASPART 100 UNITS/ML 10ML VIAL SQ SCH ×2 (07:14→11:09)
[2023-03-30] MEDS: INSULIN ASPART SLIDING SCALE (NOVOLOG) 1 VIAL SQ SCH ×3 (07:14→17:25)
[2023-03-30 07:17] LABS: POTASSIUM 5.2 mmol/L (3.5-5.1)
[2023-03-30 07:18] LABS: CALCIUM 8.8 mg/dL (8.5-10.1)
[2023-03-30 07:19] LABS: BLOOD UREA NITROGEN 62.7 mg/dL (7-18)
[2023-03-30 07:22] LABS: CREATININE 1.5 mg/dL (0.55-1.3)
[2023-03-30] MEDS: ALBUTEROL SO4 2.5/IPRATROPIUM 0.5 INH SOL 3 ML VIAL.NEB. NEB SCH ×3 (07:24→20:00)
[2023-03-30] MEDS: ISOSORBIDE MONONITRATE 30 MG TAB.SR.24H (FP) PO SCH (10:55)
[2023-03-30] MEDS: amLODIPine BESYLATE 10 MG TABLET (FP) PO SCH (10:55)
[2023-03-30] MEDS: PRIMIDONE 50 MG TABLET PO SCH (10:55)
[2023-03-30] MEDS: GABAPENTIN 300 MG CAPSULE PO SCH (10:55)
[2023-03-30] MEDS: SODIUM ZIRCONIUM CYCLOSILICATE (LOKELMA) 5 GM PACKET PO SCH (10:56)
[2023-03-30] MEDS ORDERED: TRIMETHOBENZAMIDE HCL 200MG/2ML INJ IM ONE (12:29)
[2023-03-30] MEDS ORDERED: DEXTROSE 50%-WATER - 25 GM/50 ML VIAL IVPUSH ONE (12:30)
[2023-03-30] MEDS: DEXTROSE 50%-WATER 25 GM/50 ML DISP.SYRIN IVPUSH PRN (12:40)
[2023-03-30] MEDS ORDERED: SODIUM CHLORIDE 1,000 ML IV SCH (12:45)
[2023-03-30] MEDS ORDERED: PIPERACILLIN/TAZOB 3.375 GM 3.375 GM in DEXTROSE 5%-WATER - 50 ML IVPB SCH (17:30)
[2023-03-30] MEDS: PIPERACILLIN/TAZOB 3.375 GM 3.375 GM in DEXTROSE 5%-WATER - 50 ML IVPB SCH (18:47)
[2023-03-30] MEDS: DONEPEZIL HCL 5 MG TABLET (FP) PO SCH (21:47)
[2023-03-30] MEDS: ATORVASTATIN CA 10 MG TABLET (FP) PO SCH (21:47)
[2023-03-30] MEDS ORDERED: INSULIN (NOVOLOG) ASPART 100 UNITS/ML 10ML VIAL SQ ONE (22:25)
[2023-03-31] MEDS: PIPERACILLIN/TAZOB 3.375 GM 3.375 GM in DEXTROSE 5%-WATER - 50 ML IVPB SCH ×4 (00:09→18:19)
[2023-03-31] MEDS: HEPARIN NA (PORCINE) 5,000 UNITS/ML 1ML VIAL SQ SCH ×3 (05:39→21:46)
[2023-03-31] MEDS: INSULIN ASPART SLIDING SCALE (NOVOLOG) 1 VIAL SQ SCH ×3 (06:40→17:17)
[2023-03-31 06:54] LABS: HEMATOCRIT 36.1 % (32.4-45.2); HEMOGLOBIN 11.5 GM/dL (10.7-15.3); MCH 28.3 pg (25.7-33.7); MEAN CELL VOLUME 88.4 fl (80-96); MEAN PLT VOLUME 9.5 fl (7.5-11.1); PLATELET COUNT 246 10^3/uL (134-434); RBC 4.08 M/mm3 (3.60-5.2); RDW 14.1 % (11.6-15.6); WHITE BLOOD COUNT 16.7 K/mm3 (4.0-10.0)
[2023-03-31 07:07] LABS: POTASSIUM 4.7 mmol/L (3.5-5.1)
[2023-03-31 07:18] LABS: CALCIUM 7.8 mg/dL (8.5-10.1)
[2023-03-31 07:19] LABS: ALBUMIN 2.2 g/dl (3.4-5.0); MAGNESIUM 2.1 mg/dL (1.8-2.4)
[2023-03-31 07:22] LABS: CREATININE 1.3 mg/dL (0.55-1.3); PHOSPHOROUS 4.1 mg/dL (2.5-4.9)
[2023-03-31 07:23] LABS: TOT PROT 6.1 g/dl (6.4-8.2)
[2023-03-31 07:24] LABS: BILIRUBIN,TOTAL 0.5 mg/dL (0.2-1)
[2023-03-31] MEDS: ALBUTEROL SO4 2.5/IPRATROPIUM 0.5 INH SOL 3 ML VIAL.NEB. NEB SCH ×3 (07:45→20:30)
[2023-03-31] MEDS: LACTATED RINGERS SOLUTION 1,000 ML/1,000 ML INFUS.BAG IV SCH ×2 (10:40→22:37)
[2023-03-31] MEDS: GABAPENTIN 300 MG CAPSULE PO SCH (10:41)
[2023-03-31] MEDS: ISOSORBIDE MONONITRATE 30 MG TAB.SR.24H (FP) PO SCH (10:41)
[2023-03-31] MEDS: amLODIPine BESYLATE 10 MG TABLET (FP) PO SCH (10:41)
[2023-03-31] MEDS: PRIMIDONE 50 MG TABLET PO SCH (10:41)
[2023-03-31] MEDS: SODIUM ZIRCONIUM CYCLOSILICATE (LOKELMA) 5 GM PACKET PO SCH (10:41)
[2023-03-31] MEDS: ATORVASTATIN CA 10 MG TABLET (FP) PO SCH (21:46)
[2023-03-31] MEDS: DONEPEZIL HCL 5 MG TABLET (FP) PO SCH (21:46)
[2023-03-31] MEDS: INSULIN (LEVEMIR) 100 UNITS/ML UNITS SQ SCH (21:57)
[2023-04-01] MEDS: PIPERACILLIN/TAZOB 3.375 GM 3.375 GM in DEXTROSE 5%-WATER - 50 ML IVPB SCH ×3 (03:17→18:04)
[2023-04-01] MEDS: INSULIN ASPART SLIDING SCALE (NOVOLOG) 1 VIAL SQ SCH ×3 (06:06→18:03)
[2023-04-01] MEDS: INSULIN (LEVEMIR) 100 UNITS/ML UNITS SQ SCH ×2 (06:06→21:43)
[2023-04-01] MEDS ORDERED: DEXTROSE 50%-WATER - 25 GM/50 ML VIAL IVPUSH ONE (06:07)
[2023-04-01] MEDS: HEPARIN NA (PORCINE) 5,000 UNITS/ML 1ML VIAL SQ SCH ×3 (06:16→21:26)
[2023-04-01] MEDS ORDERED: DEXTROSE 50%-WATER 25 GM/50 ML DISP.SYRIN ONE (06:17)
[2023-04-01] MEDS: DEXTROSE 50%-WATER 25 GM/50 ML DISP.SYRIN IVPUSH PRN (06:22)
[2023-04-01] MEDS: ALBUTEROL SO4 2.5/IPRATROPIUM 0.5 INH SOL 3 ML VIAL.NEB. NEB SCH ×3 (08:14→20:35)
[2023-04-01] MEDS: ISOSORBIDE MONONITRATE 30 MG TAB.SR.24H (FP) PO SCH (09:30)
[2023-04-01] MEDS: amLODIPine BESYLATE 10 MG TABLET (FP) PO SCH (09:30)
[2023-04-01] MEDS: GABAPENTIN 300 MG CAPSULE PO SCH (09:30)
[2023-04-01] MEDS: PRIMIDONE 50 MG TABLET PO SCH (09:32)
[2023-04-01] MEDS: LACTATED RINGERS SOLUTION 1,000 ML/1,000 ML INFUS.BAG IV SCH (09:33)
[2023-04-01 16:29] LABS: HEMATOCRIT 31.8 % (32.4-45.2); HEMOGLOBIN 10.2 GM/dL (10.7-15.3); MCH 28.5 pg (25.7-33.7); MCHC 32.2 g/dl (32.0-36.0); MEAN CELL VOLUME 88.5 fl (80-96); MEAN PLT VOLUME 8.9 fl (7.5-11.1); PLATELET COUNT 214 10^3/uL (134-434); RBC 3.59 M/mm3 (3.60-5.2); RDW 14.4 % (11.6-15.6); WHITE BLOOD COUNT 12.4 K/mm3 (4.0-10.0)
[2023-04-01 16:59] LABS: POTASSIUM 4.5 mmol/L (3.5-5.1)
[2023-04-01 17:01] LABS: BLOOD UREA NITROGEN 17.4 mg/dL (7-18); CALCIUM 8.5 mg/dL (8.5-10.1)
[2023-04-01 17:06] LABS: BILIRUBIN,TOTAL 0.5 mg/dL (0.2-1); TOT PROT 5.6 g/dl (6.4-8.2)
[2023-04-01] MEDS: ATORVASTATIN CA 10 MG TABLET (FP) PO SCH (21:26)
[2023-04-01] MEDS: DONEPEZIL HCL 5 MG TABLET (FP) PO SCH (21:26)
[2023-04-02] MEDS: PIPERACILLIN/TAZOB 3.375 GM 3.375 GM in DEXTROSE 5%-WATER - 50 ML IVPB SCH ×3 (02:54→17:42)
[2023-04-02] MEDS: INSULIN (LEVEMIR) 100 UNITS/ML UNITS SQ SCH ×2 (06:10→21:46)
[2023-04-02] MEDS: HEPARIN NA (PORCINE) 5,000 UNITS/ML 1ML VIAL SQ SCH ×3 (06:10→21:37)
[2023-04-02] MEDS: INSULIN ASPART SLIDING SCALE (NOVOLOG) 1 VIAL SQ SCH ×3 (06:11→17:33)
[2023-04-02] MEDS: LACTATED RINGERS SOLUTION 1,000 ML/1,000 ML INFUS.BAG IV SCH (06:17)
[2023-04-02 07:15] LABS: HEMATOCRIT 35.7 % (32.4-45.2); HEMOGLOBIN 11.4 GM/dL (10.7-15.3); MCH 28.5 pg (25.7-33.7); PLATELET COUNT 222 10^3/uL (134-434); RBC 4.02 M/mm3 (3.60-5.2); RDW 14.2 % (11.6-15.6); WHITE BLOOD COUNT 10.1 K/mm3 (4.0-10.0)
[2023-04-02 07:51] LABS: ALBUMIN 2.3 g/dl (3.4-5.0); BLOOD UREA NITROGEN 14.5 mg/dL (7-18); CALCIUM 8.9 mg/dL (8.5-10.1)
[2023-04-02 07:54] LABS: CREATININE 1.1 mg/dL (0.55-1.3)
[2023-04-02 07:56] LABS: BILIRUBIN,TOTAL 0.7 mg/dL (0.2-1); TOT PROT 6.5 g/dl (6.4-8.2)
[2023-04-02] MEDS: ALBUTEROL SO4 2.5/IPRATROPIUM 0.5 INH SOL 3 ML VIAL.NEB. NEB SCH ×3 (08:15→20:33)
[2023-04-02] MEDS: amLODIPine BESYLATE 10 MG TABLET (FP) PO SCH (10:15)
[2023-04-02] MEDS: GABAPENTIN 300 MG CAPSULE PO SCH (10:15)
[2023-04-02] MEDS: ISOSORBIDE MONONITRATE 30 MG TAB.SR.24H (FP) PO SCH (10:15)
[2023-04-02] MEDS: PRIMIDONE 50 MG TABLET PO SCH (10:15)
[2023-04-02] MEDS: SODIUM ZIRCONIUM CYCLOSILICATE (LOKELMA) 5 GM PACKET PO SCH (13:54)
[2023-04-02] MEDS: DONEPEZIL HCL 5 MG TABLET (FP) PO SCH (21:37)
[2023-04-02] MEDS: ATORVASTATIN CA 10 MG TABLET (FP) PO SCH (21:37)
[2023-04-03] MEDS: INSULIN (LEVEMIR) 100 UNITS/ML UNITS SQ SCH ×3 (00:39→21:52)
[2023-04-03] MEDS: PIPERACILLIN/TAZOB 3.375 GM 3.375 GM in DEXTROSE 5%-WATER - 50 ML IVPB SCH ×3 (02:34→17:24)
[2023-04-03] MEDS: HEPARIN NA (PORCINE) 5,000 UNITS/ML 1ML VIAL SQ SCH ×3 (06:35→21:52)
[2023-04-03] MEDS: INSULIN ASPART SLIDING SCALE (NOVOLOG) 1 VIAL SQ SCH ×3 (06:35→17:25)
[2023-04-03] MEDS: ALBUTEROL SO4 2.5/IPRATROPIUM 0.5 INH SOL 3 ML VIAL.NEB. NEB SCH ×3 (07:30→20:30)
[2023-04-03 07:36] LABS: HEMATOCRIT 33.3 % (32.4-45.2); HEMOGLOBIN 10.7 GM/dL (10.7-15.3); MCH 28.7 pg (25.7-33.7); MCHC 32.1 g/dl (32.0-36.0); MEAN CELL VOLUME 89.5 fl (80-96); MEAN PLT VOLUME 8.9 fl (7.5-11.1); PLATELET COUNT 222 10^3/uL (134-434); RBC 3.72 M/mm3 (3.60-5.2); RDW 13.8 % (11.6-15.6); WHITE BLOOD COUNT 12.5 K/mm3 (4.0-10.0)
[2023-04-03 07:46] LABS: POTASSIUM 4.1 mmol/L (3.5-5.1)
[2023-04-03 07:59] LABS: ALBUMIN 2.3 g/dl (3.4-5.0); BLOOD UREA NITROGEN 16.9 mg/dL (7-18); MAGNESIUM 1.5 mg/dL (1.8-2.4)
[2023-04-03 08:02] LABS: CREATININE 1.3 mg/dL (0.55-1.3); PHOSPHOROUS 2.7 mg/dL (2.5-4.9)
[2023-04-03 08:04] LABS: BILIRUBIN,TOTAL 0.4 mg/dL (0.2-1); TOT PROT 6.6 g/dl (6.4-8.2)
[2023-04-03 08:12] LABS: CALCIUM 8.9 mg/dL (8.5-10.1)
[2023-04-03] MEDS ORDERED: MAGNESIUM SULFATE IN WATER 2 GM/50 ML IVPB IVPB ONE (08:30)
[2023-04-03] MEDS: GABAPENTIN 300 MG CAPSULE PO SCH (10:15)
[2023-04-03] MEDS: ISOSORBIDE MONONITRATE 30 MG TAB.SR.24H (FP) PO SCH (10:15)
[2023-04-03] MEDS: amLODIPine BESYLATE 10 MG TABLET (FP) PO SCH (10:15)
[2023-04-03] MEDS: PRIMIDONE 50 MG TABLET PO SCH (10:16)
[2023-04-03] MEDS: SODIUM ZIRCONIUM CYCLOSILICATE (LOKELMA) 5 GM PACKET PO SCH (10:16)
[2023-04-03] MEDS: LACTATED RINGERS SOLUTION 1,000 ML/1,000 ML INFUS.BAG IV SCH (10:22)
[2023-04-03] MEDS: ATORVASTATIN CA 10 MG TABLET (FP) PO SCH (21:52)
[2023-04-03] MEDS: DONEPEZIL HCL 5 MG TABLET (FP) PO SCH (21:53)
[2023-04-04] MEDS: PIPERACILLIN/TAZOB 3.375 GM 3.375 GM in DEXTROSE 5%-WATER - 50 ML IVPB SCH ×2 (01:46→09:34)
[2023-04-04] MEDS: INSULIN (LEVEMIR) 100 UNITS/ML UNITS SQ SCH (06:41)
[2023-04-04] MEDS: INSULIN ASPART SLIDING SCALE (NOVOLOG) 1 VIAL SQ SCH ×3 (06:42→18:10)
[2023-04-04] MEDS: HEPARIN NA (PORCINE) 5,000 UNITS/ML 1ML VIAL SQ SCH (06:42)
[2023-04-04] MEDS: ALBUTEROL SO4 2.5/IPRATROPIUM 0.5 INH SOL 3 ML VIAL.NEB. NEB SCH ×2 (07:20→14:26)
[2023-04-04] MEDS: LACTATED RINGERS SOLUTION 1,000 ML/1,000 ML INFUS.BAG IV SCH (07:30)
[2023-04-04 07:44] LABS: HEMATOCRIT 32.2 % (32.4-45.2); HEMOGLOBIN 10.5 GM/dL (10.7-15.3); MCH 29.1 pg (25.7-33.7); MCHC 32.5 g/dl (32.0-36.0); MEAN CELL VOLUME 89.5 fl (80-96); MEAN PLT VOLUME 8.9 fl (7.5-11.1); PLATELET COUNT 217 10^3/uL (134-434); RDW 13.8 % (11.6-15.6); WHITE BLOOD COUNT 11.5 K/mm3 (4.0-10.0)
[2023-04-04 07:57] LABS: POTASSIUM 4.5 mmol/L (3.5-5.1)
[2023-04-04 07:59] LABS: CALCIUM 8.3 mg/dL (8.5-10.1)
[2023-04-04 08:00] LABS: BLOOD UREA NITROGEN 17.7 mg/dL (7-18); MAGNESIUM 1.5 mg/dL (1.8-2.4)
[2023-04-04 08:03] LABS: CREATININE 1.3 mg/dL (0.55-1.3); PHOSPHOROUS 2.8 mg/dL (2.5-4.9)
[2023-04-04] MEDS: SODIUM ZIRCONIUM CYCLOSILICATE (LOKELMA) 5 GM PACKET PO SCH (09:33)
[2023-04-04] MEDS: GABAPENTIN 300 MG CAPSULE PO SCH (09:33)
[2023-04-04] MEDS: amLODIPine BESYLATE 10 MG TABLET (FP) PO SCH (09:33)
[2023-04-04] MEDS: ISOSORBIDE MONONITRATE 30 MG TAB.SR.24H (FP) PO SCH (09:33)
[2023-04-04] MEDS: PRIMIDONE 50 MG TABLET PO SCH (09:34)
[2023-04-04] MEDS ORDERED: MAGNESIUM SULF 50% (8.12 MEQ/2 ML-1 GM VIAL) IVPB ONE (09:43)
[2023-04-04 18:23] VITALS: BP 131/62; PULSE 60; RESP 18; TEMP 98.3
== END 2023-04-04 19:42 | disposition home health service (06) | DRG 193 ==
LOC: JER 19:19 → JERBED 22:06 → J4W 03-25 12:05
PROVIDERS: ADMIT Internal Medicine; ATTEND Internal Medicine
DX: J11.08 Influenza due to unidentified influenza virus with specified pneumonia (principal); I50.33 Acute on chronic diastolic (congestive) heart failure; J96.01 Acute respiratory failure with hypoxia; K85.90 Acute pancreatitis without necrosis or infection, unspecified; E87.20 Acidosis, unspecified; N17.9 Acute kidney failure, unspecified; I13.0 Hypertensive heart and chronic kidney disease with heart failure and stage 1 through stage 4 chronic kidney disease, or unspecified chronic kidney disease; E87.1 Hypo-osmolality and hyponatremia; I24.89 Other forms of acute ischemic heart disease; I42.8 Other cardiomyopathies; N18.9 Chronic kidney disease, unspecified; I25.10 Atherosclerotic heart disease of native coronary artery without angina pectoris; Z95.1 Presence of aortocoronary bypass graft; E78.5 Hyperlipidemia, unspecified; E11.22 Type 2 diabetes mellitus with diabetic chronic kidney disease; Z79.4 Long term (current) use of insulin; E87.5 Hyperkalemia; J15.9 Unspecified bacterial pneumonia; H57.89 Other specified disorders of eye and adnexa
CPT/HCPCS: 0241U-QW; 36415; 36600; 70450-TC; 70543-TC; 71045-TC-FY; 71250-TC; 74018-TC-FY; 74182-TC; 76705-TC; 80048; 80053; 81003; 82803; 82962; 83036; 83605; 83690; 83735; 83880; 84100; 84478; 84484; 85025; 85027; 85610; 86850; 86900; 86901; 87040; 87070; 87081; 87086; 87205; 87635; 87899; 93005; 93010; 93306-TC; 94640; 97116-GP; 97161-GP; 99285-25; J1644

== ENCOUNTER 2023-10-12 14:53 | Inpatient (IN) | payer OTHER ==
[2023-10-12 14:59] VITALS: BMI 26.9
[2023-10-12] MEDS ORDERED: ALBUTEROL SO4 2.5/IPRATROPIUM 0.5 INH SOL 3 ML VIAL.NEB. NEB ONE (16:21)
[2023-10-12] MEDS ORDERED: ACETAMINOPHEN INJECTION 100 ML IVPB ONE (16:21)
[2023-10-12 16:29] LABS: BASO % 0.2 % (0-2.0); EOS % 0.2 % (0-4.5); HEMATOCRIT 32.6 % (32.4-45.2); HEMOGLOBIN 10.7 GM/dL (10.7-15.3); LYMPH % 18.2 % (8-40); MCH 28.2 pg (25.7-33.7); MCHC 32.9 g/dl (32.0-36.0); MEAN CELL VOLUME 85.7 fl (80-96); MEAN PLT VOLUME 8.2 fl (7.5-11.1); MONO % 7.3 % (3.8-10.2); NEUT % 74.1 % (42.8-82.8); PLATELET COUNT 203 10^3/uL (134-434); WHITE BLOOD COUNT 11.5 K/mm3 (4.0-10.0)
[2023-10-12] MEDS: ACETAMINOPHEN 1000 MG/100 ML BAG IVPB ONE (16:29)
[2023-10-12] MEDS: ALBUTEROL SO4 2.5/IPRATROPIUM 0.5 INH SOL 3 ML VIAL.NEB. NEB SCH (16:30)
[2023-10-12] MEDS: LACTATED RINGERS SOLUTION 1000 ML INFUS.BAG IV ONE (16:30)
[2023-10-12 16:38] LABS: INR 1.09 (0.83-1.09); PROTHROMBIN TIME (PATIENT) 12.3 SEC (9.7-13.0)
[2023-10-12 16:48] LABS: CHLORIDE 107 mmol/L (98-107); POTASSIUM 5.2 mmol/L (3.5-5.1); SODIUM 134 mmol/L (136-145)
[2023-10-12 16:50] LABS: CALCIUM 8.7 mg/dL (8.5-10.1)
[2023-10-12 16:51] LABS: ALBUMIN 3.2 g/dl (3.4-5.0); ANION GAP 7 mmol/L (4-13); BLOOD UREA NITROGEN 46.5 mg/dL (7-18); CO2 21 mmol/L (21-32); GLUCOSE,RANDOM 288 mg/dL (74-106); MAGNESIUM 1.9 mg/dL (1.8-2.4)
[2023-10-12 16:54] LABS: VENOUS BASE EXCESS -6.4 mmol/L (-2-2); VENOUS PCO2 41.4 mmHg (38-52); VENOUS PH 7.295 (7.310-7.410)
[2023-10-12 16:55] LABS: BILIRUBIN,TOTAL 0.2 mg/dL (0.2-1); CREATININE 2.2 mg/dL (0.55-1.3); PHOSPHOROUS 3.8 mg/dL (2.5-4.9); SGOT/AST 28 U/L (15-37); SGPT/ALT 23 U/L (13-61); TOT PROT 7.7 g/dl (6.4-8.2)
[2023-10-12 16:58] LABS: ALK PHOS 132 U/L (45-117)
[2023-10-12 17:00] LABS: N-TERMINAL BNP 1589.4 pg/ml (5-450)
[2023-10-12] MEDS ORDERED: SODIUM ZIRCONIUM CYCLOSILICATE (LOKELMA) 10 GM PACKET ONE (19:52)
[2023-10-12] MEDS: SODIUM CHLORIDE 0.9% 500 ML INFUS.BAG IV ONE (20:08)
[2023-10-12] MEDS: SODIUM ZIRCONIUM CYCLOSILICATE (LOKELMA) 5 GM PACKET PO ONE (20:08)
[2023-10-12] MEDS: REMDESIVIR 200 MG in SODIUM CHLORIDE 250 ML IVPB ONE (20:08)
[2023-10-12] MEDS ORDERED: HEPARIN NA (PORCINE) 5,000 UNITS/ML 1ML VIAL ONE (22:45)
[2023-10-12] MEDS: HEPARIN NA (PORCINE) 5,000 UNITS/ML 1ML VIAL SQ SCH (22:52)
[2023-10-12] MEDS: INSULIN ASPART SLIDING SCALE (NOVOLOG) 1 VIAL SQ SCH (22:53)
[2023-10-13] MEDS: SODIUM CHLORIDE 1,000 ML IV SCH ×2 (02:01→14:23)
[2023-10-13] MEDS ORDERED: HEPARIN NA (PORCINE) 5,000 UNITS/ML 1ML VIAL ONE (06:07)
[2023-10-13 07:09] LABS: BASO % 0.6 % (0-2.0); EOS % 2.1 % (0-4.5); HEMATOCRIT 33.4 % (32.4-45.2); HEMOGLOBIN 10.9 GM/dL (10.7-15.3); LYMPH % 34.5 % (8-40); MCH 28.5 pg (25.7-33.7); MCHC 32.6 g/dl (32.0-36.0); MEAN CELL VOLUME 87.2 fl (80-96); MEAN PLT VOLUME 8.4 fl (7.5-11.1); MONO % 8.8 % (3.8-10.2); PLATELET COUNT 199 10^3/uL (134-434); RBC 3.83 M/mm3 (3.60-5.2); RDW 13.7 % (11.6-15.6); WHITE BLOOD COUNT 9.3 K/mm3 (4.0-10.0)
[2023-10-13 07:28] LABS: POTASSIUM 4.3 mmol/L (3.5-5.1)
[2023-10-13 07:33] LABS: CALCIUM 8.5 mg/dL (8.5-10.1)
[2023-10-13 07:34] LABS: BLOOD UREA NITROGEN 35.6 mg/dL (7-18)
[2023-10-13 07:35] LABS: CREATININE 1.4 mg/dL (0.55-1.3)
[2023-10-13 07:36] LABS: BILIRUBIN,TOTAL 0.1 mg/dL (0.2-1); TOT PROT 7.6 g/dl (6.4-8.2)
[2023-10-13 08:07] LABS: PHOSPHOROUS 3.4 mg/dL (2.5-4.9)
[2023-10-13] MEDS ORDERED: ACETAMINOPHEN 325 MG TABLET (FP) ONE (08:36)
[2023-10-13] MEDS: ACETAMINOPHEN 325 MG TABLET (FP) PO PRN (08:37)
[2023-10-13] MEDS ORDERED: ASPIRIN COATED 81 MG TABLET.EC ONE (09:13)
[2023-10-13] MEDS ORDERED: GABAPENTIN 300 MG CAPSULE ONE (09:13)
[2023-10-13] MEDS: GABAPENTIN 300 MG CAPSULE PO SCH (09:14)
[2023-10-13] MEDS: ASPIRIN COATED 81 MG TABLET.EC PO SCH (09:14)
[2023-10-13] MEDS ORDERED: LABETALOL HCL 200 MG TABLET (FP) PO SCH (10:00)
[2023-10-13] MEDS ORDERED: amLODIPine BESYLATE 10 MG TABLET (FP) PO SCH (10:00)
[2023-10-13] MEDS ORDERED: ISOSORBIDE MONONITRATE 30 MG TAB.SR.24H (FP) PO SCH (10:00)
[2023-10-13] MEDS: SODIUM ZIRCONIUM CYCLOSILICATE (LOKELMA) 5 GM PACKET PO SCH (12:19)
[2023-10-13] MEDS: SODIUM CHLORIDE 0.45% 1,000 ML IV SCH (17:00)
[2023-10-13] MEDS: INSULIN ASPART SLIDING SCALE (NOVOLOG) 1 VIAL SQ SCH (21:02)
[2023-10-13] MEDS: HEPARIN NA (PORCINE) 5,000 UNITS/ML 1ML VIAL SQ SCH (21:02)
[2023-10-13] MEDS: REMDESIVIR 100 MG in SODIUM CHLORIDE 250 ML IVPB SCH (21:02)
[2023-10-13] MEDS ORDERED: REMDESIVIR 100 MG in SODIUM CHLORIDE 250 ML IVPB SCH (22:00)
[2023-10-14] MEDS: amLODIPine BESYLATE 10 MG TABLET (FP) PO ONE (02:06)
[2023-10-14] MEDS: ACETAMINOPHEN 325 MG TABLET (FP) PO PRN (05:51)
[2023-10-14 08:19] LABS: EPI CELLS 4 /uL (0-25.1); HYALINE CASTS 0 /uL (0-3.1); URINE APPEARANCE CLEAR; URINE BACTERIA 27 /uL (0-1359); URINE BILIRUBIN NEGATIVE (NEGATIVE); URINE COLOR YELLOW; URINE GLUCOSE (UA) TRACE (NEGATIVE); URINE KETONE NEGATIVE (NEGATIVE); URINE LEUK ESTERASE NEGATIVE (NEGATIVE); URINE NITRITE NEGATIVE (NEGATIVE); URINE PROTEIN 2+ (NEGATIVE); URINE RBC 9 /uL (0-23.9); URINE UROBILINOGEN 0.2 mg/dL (0.2-1.0); URINE WBC 10 /uL (0-25.8)
[2023-10-14 08:38] LABS: POTASSIUM 4.6 mmol/L (3.5-5.1)
[2023-10-14 08:42] LABS: CALCIUM 8.8 mg/dL (8.5-10.1)
[2023-10-14 08:43] LABS: ALBUMIN 2.9 g/dl (3.4-5.0); BLOOD UREA NITROGEN 27.1 mg/dL (7-18)
[2023-10-14 08:48] LABS: CREATININE 1.1 mg/dL (0.55-1.3)
[2023-10-14 08:49] LABS: TOT PROT 7.2 g/dl (6.4-8.2)
[2023-10-14 08:50] LABS: BILIRUBIN,TOTAL 0.1 mg/dL (0.2-1)
[2023-10-14] MEDS: ASPIRIN COATED 81 MG TABLET.EC PO SCH (09:26)
[2023-10-14] MEDS: GABAPENTIN 300 MG CAPSULE PO SCH (09:26)
[2023-10-14] MEDS: LABETALOL HCL 200 MG TABLET (FP) PO SCH (09:26)
[2023-10-14] MEDS ORDERED: REMDESIVIR 100 MG in SODIUM CHLORIDE 250 ML IVPB SCH (10:00)
[2023-10-14] MEDS: SODIUM ZIRCONIUM CYCLOSILICATE (LOKELMA) 5 GM PACKET PO SCH (10:11)
[2023-10-14] MEDS: guaiFENesin 200 MG/10 ML 10 ML UNIT-DOSE CUPS PO PRN (11:35)
[2023-10-14] MEDS: INSULIN (LEVEMIR) 100 UNITS/ML UNITS SQ SCH (21:03)
[2023-10-15] MEDS: amLODIPine BESYLATE 10 MG TABLET (FP) PO SCH (09:20)
[2023-10-15] MEDS ORDERED: INSULIN ASPART SLIDING SCALE (NOVOLOG) 1 VIAL SQ ONE (11:30)
[2023-10-15 12:05] LABS: HEMATOCRIT 33.5 % (32.4-45.2); HEMOGLOBIN 11.2 GM/dL (10.7-15.3); MCH 28.6 pg (25.7-33.7); MCHC 33.5 g/dl (32.0-36.0); MEAN CELL VOLUME 85.4 fl (80-96); MEAN PLT VOLUME 8.4 fl (7.5-11.1); PLATELET COUNT 219 10^3/uL (134-434); RBC 3.92 M/mm3 (3.60-5.2); RDW 13.8 % (11.6-15.6); WHITE BLOOD COUNT 9.2 K/mm3 (4.0-10.0)
[2023-10-15 12:33] LABS: POTASSIUM 5.1 mmol/L (3.5-5.1)
[2023-10-15 12:40] LABS: MAGNESIUM 1.5 mg/dL (1.8-2.4)
[2023-10-15 12:41] LABS: ALBUMIN 2.8 g/dl (3.4-5.0); BLOOD UREA NITROGEN 36.2 mg/dL (7-18)
[2023-10-15 12:43] LABS: CREATININE 1.2 mg/dL (0.55-1.3)
[2023-10-15 12:44] LABS: PHOSPHOROUS 2.8 mg/dL (2.5-4.9); TOT PROT 7.3 g/dl (6.4-8.2)
[2023-10-15 12:46] LABS: BILIRUBIN,TOTAL 0.2 mg/dL (0.2-1)
[2023-10-16] MEDS ORDERED: INSULIN ASPART SLIDING SCALE (NOVOLOG) 1 VIAL SQ ONE (09:58)
[2023-10-16] MEDS ORDERED: guaiFENesin 200 MG/10 ML 10 ML UNIT-DOSE CUPS PO PRN (19:10)
[2023-10-16] MEDS: HEPARIN NA (PORCINE) 5,000 UNITS/ML 1ML VIAL SQ SCH (21:36)
[2023-10-16] MEDS: LABETALOL HCL 200 MG TABLET (FP) PO SCH (21:36)
[2023-10-16] MEDS: INSULIN ASPART SLIDING SCALE (NOVOLOG) 1 VIAL SQ SCH (21:40)
[2023-10-16] MEDS: ACETAMINOPHEN 325 MG TABLET (FP) PO PRN (22:31)
[2023-10-17 09:37] LABS: BASO % 0.4 % (0-2.0); EOS % 3.4 % (0-4.5); HEMATOCRIT 35.8 % (32.4-45.2); HEMOGLOBIN 11.5 GM/dL (10.7-15.3); LYMPH % 54.4 % (8-40); MCH 27.8 pg (25.7-33.7); MCHC 32.2 g/dl (32.0-36.0); MEAN CELL VOLUME 86.2 fl (80-96); MEAN PLT VOLUME 8.6 fl (7.5-11.1); MONO % 7.4 % (3.8-10.2); NEUT % 34.4 % (42.8-82.8); PLATELET COUNT 284 10^3/uL (134-434); RBC 4.15 M/mm3 (3.60-5.2); RDW 13.8 % (11.6-15.6); WHITE BLOOD COUNT 8.1 K/mm3 (4.0-10.0)
[2023-10-17 09:46] LABS: POTASSIUM 5.2 mmol/L (3.5-5.1)
[2023-10-17 09:52] LABS: BLOOD UREA NITROGEN 32.9 mg/dL (7-18); CALCIUM 8.8 mg/dL (8.5-10.1)
[2023-10-17 09:55] LABS: CREATININE 1.3 mg/dL (0.55-1.3)
[2023-10-17 09:56] LABS: BILIRUBIN,TOTAL 0.2 mg/dL (0.2-1)
[2023-10-17 10:00] LABS: TOT PROT 7.7 g/dl (6.4-8.2)
[2023-10-17] MEDS: amLODIPine BESYLATE 10 MG TABLET (FP) PO SCH (10:04)
[2023-10-17] MEDS: ASPIRIN COATED 81 MG TABLET.EC PO SCH (10:04)
[2023-10-17] MEDS: GABAPENTIN 300 MG CAPSULE PO SCH (10:04)
[2023-10-17] MEDS: SODIUM ZIRCONIUM CYCLOSILICATE (LOKELMA) 5 GM PACKET PO SCH (10:04)
[2023-10-17] MEDS: MAG HYDROX/AL HYDROX/SIMETH -MYLANTA- ORAL SUSPENSION PO SCH (13:00)
[2023-10-17] MEDS: MAG HYDROX/AL HYDROX/SIMETH 30 ML UNIT-DOSE CUP PO SCH (13:01)
[2023-10-17] MEDS: PANTOPRAZOLE 40 MG TABLET PO SCH (13:01)
[2023-10-17] MEDS: INSULIN (NOVOLOG) ASPART 100 UNITS/ML 10ML VIAL SQ SCH (17:41)
[2023-10-17] MEDS: INSULIN (LEVEMIR) 100 UNITS/ML UNITS SQ SCH (21:31)
[2023-10-18] MEDS ORDERED: ENOXAPARIN NA (PORCINE) 40 MG/0.4 ML DISP.SYRIN SQ SCH (10:00)
[2023-10-18] MEDS: ENOXAPARIN NA (PORCINE) 40 MG/0.4 ML DISP.SYRIN SQ SCH (10:23)
[2023-10-18] MEDS: AMPICILLIN NA/SULBACTAM NA 1.5 GM in SODIUM CHLORIDE 100 ML IVPB SCH (15:29)
[2023-10-18 17:49] LABS: POTASSIUM 4.6 mmol/L (3.5-5.1)
[2023-10-18 17:50] LABS: CALCIUM 9.1 mg/dL (8.5-10.1)
[2023-10-18 17:51] LABS: BLOOD UREA NITROGEN 30.1 mg/dL (7-18)
[2023-10-18 17:54] LABS: CREATININE 1.4 mg/dL (0.55-1.3)
[2023-10-18 17:56] LABS: BILIRUBIN,TOTAL 0.3 mg/dL (0.2-1); TOT PROT 7.5 g/dl (6.4-8.2)
[2023-10-18 23:40] VITALS: RESP 18
[2023-10-19 06:52] LABS: BASO % 0.2 % (0-2.0); EOS % 1.8 % (0-4.5); HEMATOCRIT 35.1 % (32.4-45.2); HEMOGLOBIN 11.4 GM/dL (10.7-15.3); LYMPH % 32.4 % (8-40); MCH 28.3 pg (25.7-33.7); MCHC 32.5 g/dl (32.0-36.0); MEAN CELL VOLUME 86.9 fl (80-96); MEAN PLT VOLUME 8.2 fl (7.5-11.1); MONO % 8.2 % (3.8-10.2); NEUT % 57.4 % (42.8-82.8); PLATELET COUNT 340 10^3/uL (134-434); RBC 4.03 M/mm3 (3.60-5.2); RDW 13.8 % (11.6-15.6); WHITE BLOOD COUNT 11.3 K/mm3 (4.0-10.0)
[2023-10-19 07:13] LABS: ALBUMIN 3.2 g/dl (3.4-5.0); CALCIUM 9.2 mg/dL (8.5-10.1)
[2023-10-19 07:14] LABS: MAGNESIUM 1.9 mg/dL (1.8-2.4)
[2023-10-19 07:17] LABS: CREATININE 1.3 mg/dL (0.55-1.3); PHOSPHOROUS 2.7 mg/dL (2.5-4.9)
[2023-10-19 07:18] LABS: BILIRUBIN,TOTAL 0.3 mg/dL (0.2-1); TOT PROT 8.6 g/dl (6.4-8.2)
[2023-10-19] MEDS: VANCOMYCIN/WATER FOR INJ (PEG) 1 GM/200 ML BAG IVPB ONE (10:23)
[2023-10-19] MEDS: FUROSEMIDE 20 MG TABLET (FP) PO ONE (10:24)
[2023-10-19] MEDS: SODIUM CHLORIDE 0.45% 1,000 ML IV SCH (10:25)
[2023-10-19] MEDS ORDERED: DEXTROSE 50%-WATER 25 GM/50 ML DISP.SYRIN ONE (10:38)
[2023-10-19] MEDS: DEXTROSE 50%-WATER - 25 GM/50 ML VIAL IVPUSH ONE ×2 (10:42→10:45)
[2023-10-19] MEDS: DEXTROSE 50%-WATER 25 GM/50 ML DISP.SYRIN IVPUSH ONE (10:43)
[2023-10-19] MEDS ORDERED: SODIUM ZIRCONIUM CYCLOSILICATE (LOKELMA) 5 GM PACKET PO SCH (10:45)
[2023-10-19] MEDS: INSULIN REGULAR HUMAN 100 UNITS/ML *VIAL IVPUSH ONE (10:45)
[2023-10-19] MEDS: CALCIUM GLUCONATE 10% - 1,000 MG/10 ML VIAL IVPB ONE (10:46)
[2023-10-19] MEDS: AMPICILLIN NA/SULBACTAM NA 1.5 GM in SODIUM CHLORIDE 100 ML IVPB SCH ×3 (11:34→12:48)
[2023-10-19] MEDS: SODIUM ZIRCONIUM CYCLOSILICATE (LOKELMA) 5 GM PACKET PO SCH (21:49)
[2023-10-19] MEDS: ROSUVASTATIN CA 10 MG TABLET PO SCH (21:50)
[2023-10-20 05:57] VITALS: TEMP 98.4
[2023-10-20] MEDS: ROSUVASTATIN CA 20 MG TABLET PO SCH (10:46)
[2023-10-20 14:27] VITALS: BP 147/63; PULSE 78
== END 2023-10-20 18:54 | disposition home or self-care (01) | DRG 177 ==
LOC: JER 14:53 → JERBED 18:34 → J2W 10-13 12:04 → J8W 10-16 17:52 → J4S 10-17 17:08
PROVIDERS: ADMIT Internal Medicine; ATTEND Internal Medicine
PROC: XW033E5 Introduction of Remdesivir Anti-infective into Peripheral Vein, Percutaneous Approach, New Technology Group 5 (ICD-10-PCS; principal; 2023-10-12)
DX: U07.1 COVID-19 (principal); I21.A1 Myocardial infarction type 2; J96.01 Acute respiratory failure with hypoxia; I13.0 Hypertensive heart and chronic kidney disease with heart failure and stage 1 through stage 4 chronic kidney disease, or unspecified chronic kidney disease; I50.22 Chronic systolic (congestive) heart failure; N17.9 Acute kidney failure, unspecified; M62.82 Rhabdomyolysis; I42.8 Other cardiomyopathies; E87.1 Hypo-osmolality and hyponatremia; T80.89XA Other complications following infusion, transfusion and therapeutic injection, initial encounter; I25.10 Atherosclerotic heart disease of native coronary artery without angina pectoris; Z95.1 Presence of aortocoronary bypass graft; E11.65 Type 2 diabetes mellitus with hyperglycemia; E86.0 Dehydration; E11.22 Type 2 diabetes mellitus with diabetic chronic kidney disease; N18.9 Chronic kidney disease, unspecified; E87.5 Hyperkalemia; Y83.8 Other surgical procedures as the cause of abnormal reaction of the patient, or of later complication, without mention of misadventure at the time of the procedure
CPT/HCPCS: 0241U-QW; 36415; 70450-TC; 71045-TC-FY; 72125-TC; 76775-TC; 76882-TC-RT-FY; 80053; 81003; 82550; 82553; 82803; 82962; 83735; 83880; 84100; 84132; 84484; 85025; 85027; 85610; 85730; 86140; 86850; 86900; 86901; 93005; 93010; 94761; 97116-GP; 97161-GP; 99285-25; J0131; J0248; J1644

== ENCOUNTER 2023-10-27 16:14 | Observation (INO) | payer OTHER ==
[2023-10-27] MEDS ORDERED: ACETAMINOPHEN 325 MG TABLET (FP) ONE (17:28)
[2023-10-27] MEDS: ACETAMINOPHEN 500 MG TABLET (FP) PO ONE (17:31)
[2023-10-27 19:11] LABS: HEMATOCRIT 30.9 % (32.4-45.2); LYMPH % 47.3 % (8-40); MCH 28.2 pg (25.7-33.7); MCHC 32.3 g/dl (32.0-36.0); MEAN CELL VOLUME 87.3 fl (80-96); MONO % 6.9 % (3.8-10.2); NEUT % 43.8 % (42.8-82.8); PLATELET COUNT 274 10^3/uL (134-434); RBC 3.54 M/mm3 (3.60-5.2); WHITE BLOOD COUNT 11.4 K/mm3 (4.0-10.0)
[2023-10-27 19:13] LABS: CALCIUM 9.1 mg/dL (8.5-10.1); POTASSIUM 4.8 mmol/L (3.5-5.1)
[2023-10-27 19:14] LABS: ALBUMIN 2.9 g/dl (3.4-5.0); BLOOD UREA NITROGEN 24.2 mg/dL (7-18)
[2023-10-27 19:17] LABS: CREATININE 1.2 mg/dL (0.55-1.3)
[2023-10-27 19:19] LABS: BILIRUBIN,TOTAL 0.1 mg/dL (0.2-1); TOT PROT 7.6 g/dl (6.4-8.2)
[2023-10-27] MEDS: INSULIN ASPART SLIDING SCALE (NOVOLOG) 1 VIAL SQ SCH (21:53)
[2023-10-27] MEDS ORDERED: ACETAMINOPHEN 325 MG TABLET (FP) PO PRN ×2 (22:02→22:16)
[2023-10-28 07:45] LABS: BASO % 0.6 % (0-2.0); EOS % 1.7 % (0-4.5); HEMATOCRIT 30.4 % (32.4-45.2); HEMOGLOBIN 10.2 GM/dL (10.7-15.3); LYMPH % 46.7 % (8-40); MCH 28.5 pg (25.7-33.7); MCHC 33.4 g/dl (32.0-36.0); MEAN CELL VOLUME 85.4 fl (80-96); MEAN PLT VOLUME 7.7 fl (7.5-11.1); MONO % 9.7 % (3.8-10.2); NEUT % 41.3 % (42.8-82.8); PLATELET COUNT 295 10^3/uL (134-434); RBC 3.56 M/mm3 (3.60-5.2); RDW 14.1 % (11.6-15.6); WHITE BLOOD COUNT 6.5 K/mm3 (4.0-10.0)
[2023-10-28 08:03] LABS: POTASSIUM 4.8 mmol/L (3.5-5.1)
[2023-10-28 08:05] LABS: INR 1.06 (0.83-1.09)
[2023-10-28 08:06] LABS: ALBUMIN 2.9 g/dl (3.4-5.0); BLOOD UREA NITROGEN 21.6 mg/dL (7-18); MAGNESIUM 1.4 mg/dL (1.8-2.4)
[2023-10-28 08:07] LABS: CALCIUM 9.3 mg/dL (8.5-10.1)
[2023-10-28 08:09] LABS: CREATININE 1.1 mg/dL (0.55-1.3); PHOSPHOROUS 2.9 mg/dL (2.5-4.9)
[2023-10-28 08:10] LABS: BILIRUBIN,TOTAL 0.5 mg/dL (0.2-1); TOT PROT 7.6 g/dl (6.4-8.2)
[2023-10-28] MEDS ORDERED: ASPIRIN COATED 81 MG TABLET.EC ONE (11:52)
[2023-10-28] MEDS: ISOSORBIDE MONONITRATE 30 MG TAB.SR.24H (FP) PO SCH (11:58)
[2023-10-28] MEDS: ASPIRIN COATED 81 MG TABLET.EC PO SCH (11:58)
[2023-10-28] MEDS: amLODIPine BESYLATE 10 MG TABLET (FP) PO SCH (11:58)
[2023-10-28] MEDS: GABAPENTIN 300 MG CAPSULE PO SCH (11:58)
[2023-10-28] MEDS: PRIMIDONE 50 MG TABLET PO SCH (11:58)
[2023-10-28] MEDS: LABETALOL HCL 200 MG TABLET (FP) PO SCH ×2 (11:58→23:04)
[2023-10-28] MEDS ORDERED: amLODIPine BESYLATE 10 MG TABLET (FP) ONE (11:59)
[2023-10-28] MEDS ORDERED: LIDOCAINE HCL 1%, 10 MG/ML (20ML VIAL) ONE (15:48)
[2023-10-28] MEDS ORDERED: LIDOCAINE HCL/PF 2% SDV 5ML VIAL ONE (16:31)
[2023-10-28] MEDS ORDERED: PROPOFOL 20 ML ONE (16:31)
[2023-10-28] MEDS ORDERED: MIDAZOLAM HCL 2 MG/2 ML SINGLE DOSE VIAL ONE (17:42)
[2023-10-28] MEDS: ceFAZolin SODIUM 1 GM VIAL IVPB ONE (17:49)
[2023-10-28] MEDS: LIDOCAINE HCL 1%, 10 MG/ML (20ML VIAL) NR ONE (17:56)
[2023-10-28] MEDS: POVIDONE-IODINE OINTMENT 10% - 28.4 GM TUBE TP ONE (18:17)
[2023-10-28] MEDS ORDERED: PROMETHAZINE HCL 25 MG/1 ML VIAL IVPB PRN (18:36)
[2023-10-28] MEDS ORDERED: ONDANSETRON 4 MG/2 ML VIAL IVPUSH PRN (18:36)
[2023-10-28] MEDS ORDERED: KETOROLAC TROMETHAMINE 30 MG/1 ML VIAL ONE (18:46)
[2023-10-28] MEDS: LACTATED RINGERS SOLUTION 1,000 ML IV SCH (18:58)
[2023-10-28] MEDS: KETOROLAC TROMETHAMINE 15 MG/ML VIAL IVPUSH ONE (18:58)
[2023-10-28] MEDS ORDERED: hydrALAZINE HCL 20 MG/ML VIAL ONE (19:14)
[2023-10-28] MEDS: hydrALAZINE HCL 20 MG/ML VIAL IVPUSH ONE (19:15)
[2023-10-28 19:58] VITALS: RESP 20
[2023-10-28] MEDS ORDERED: ROSUVASTATIN CA 10 MG TABLET PO SCH (22:00)
[2023-10-28] MEDS ORDERED: INSULIN ASPART SLIDING SCALE (NOVOLOG) 1 VIAL SQ ONE (22:10)
[2023-10-28] MEDS: ROSUVASTATIN CA 10 MG TABLET PO SCH (23:05)
[2023-10-28] MEDS: ACETAMINOPHEN 325 MG TABLET (FP) PO PRN (23:05)
[2023-10-29] MEDS: MELATONIN 5 MG TABLETS PO ONE (00:23)
[2023-10-29 02:03] VITALS: BMI 25.7
[2023-10-29] MEDS: INSULIN ASPART SLIDING SCALE (NOVOLOG) 1 VIAL SQ SCH (07:06)
[2023-10-29] MEDS: MAGNESIUM OXIDE 400 MG TABLET (FP) PO ONE (08:47)
[2023-10-29] MEDS: amLODIPine BESYLATE 10 MG TABLET (FP) PO SCH (10:34)
[2023-10-29] MEDS: ASPIRIN COATED 81 MG TABLET.EC PO SCH (10:34)
[2023-10-29] MEDS: ISOSORBIDE MONONITRATE 30 MG TAB.SR.24H (FP) PO SCH (10:34)
[2023-10-29] MEDS: GABAPENTIN 300 MG CAPSULE PO SCH (10:34)
[2023-10-29] MEDS: PRIMIDONE 50 MG TABLET PO SCH (10:35)
[2023-10-29] MEDS ORDERED: INSULIN ASPART SLIDING SCALE (NOVOLOG) 1 VIAL SQ ONE (11:46)
[2023-10-29 15:44] VITALS: BP 134/52; PULSE 63; TEMP 97.5
== END 2023-10-29 16:15 | disposition home or self-care (01) ==
LOC: JER 16:14 → INTOOBSV 19:13 → UNDOADMOB 19:13 → JERBED 19:13 → J8W 10-28 20:05
PROVIDERS: ADMIT Internal Medicine; ATTEND Nurse Practitioner Family
PROC: 3E03329 Introduction of Other Anti-infective into Peripheral Vein, Percutaneous Approach (ICD-10-PCS; 2023-10-28)
PROC: 3E033GC Introduction of Other Therapeutic Substance into Peripheral Vein, Percutaneous Approach (ICD-10-PCS; 2023-10-28)
PROC: 3E013VG Introduction of Insulin into Subcutaneous Tissue, Percutaneous Approach (ICD-10-PCS; 2023-10-28)
PROC: 3E0333Z Introduction of Anti-inflammatory into Peripheral Vein, Percutaneous Approach (ICD-10-PCS; 2023-10-28)
PROC: 3E033GC Introduction of Other Therapeutic Substance into Peripheral Vein, Percutaneous Approach (ICD-10-PCS; 2023-10-28)
PROC: 05BY0ZZ Excision of Upper Vein, Open Approach (ICD-10-PCS; principal; 2023-10-28 16:30)
DX: S50.851A Superficial foreign body of right forearm, initial encounter (principal); M79.89 Other specified soft tissue disorders; H05.9 Unspecified disorder of orbit; E11.9 Type 2 diabetes mellitus without complications; I25.10 Atherosclerotic heart disease of native coronary artery without angina pectoris; Z95.1 Presence of aortocoronary bypass graft; I11.0 Hypertensive heart disease with heart failure; J84.9 Interstitial pulmonary disease, unspecified; E78.5 Hyperlipidemia, unspecified; Z88.2 Allergy status to sulfonamides; Z29.89 Encounter for other specified prophylactic measures; X58.XXXA Exposure to other specified factors, initial encounter; Y99.8 Other external cause status
CPT/HCPCS: 36415; 70450-TC; 73030-TC-LT-FY; 73090-TC-RT-FY; 73200-TC-RT; 80053; 82962; 83735; 84100; 85025; 85610; 86850; 86900; 86901; 87081; 87635; 88304-TC; 93005; 93010; 93971; 94010; 94760; 96361; 96372; 96374; 96375; 99285-25; G0378